=== PATIENT | male | born 1975 | race Caucasian/White ===

== ENCOUNTER 2021-12-16 10:33 | Outpatient (REF) | payer MEDICAID, SELFPAY ==
--- NOTE | ~2021-12-16 | XR_ITS ---
EXAMINATION: XR KNEE, RIGHT CLINICAL INFORMATION: Unilateral primary osteoarthritis right knee. COMPARISON: None TECHNIQUE: Three views of the right knee. FINDINGS: There is loss of medial and patellofemoral compartment joint space with mild periarticular spurring. No loose bodies, bony erosive changes or fracture seen. There is mild suprapatellar joint effusion. XR/XR knee RT 3V IMPRESSION: Degenerative osteoarthritic changes medial and patellar femoral compartment with mild joint effusion. No visible acute fracture or dislocation seen.
== END 2021-12-16 10:34 | disposition home or self-care (01) ==
LOC: HO.XRAY 10:33
PROVIDERS: Visit Provider Nurse Practitioner Family
DX: M17.11 Unilateral primary osteoarthritis, right knee (principal)
CPT/HCPCS: 73562; 99202

== ENCOUNTER 2022-01-18 06:07 | Outpatient (REF) | payer MEDICAID, SELFPAY | END 2022-01-18 06:08 | disposition home or self-care (01) | LOC: HO.RADIR 06:07 | PROVIDERS: Visit Provider Anesthesiology | DX: M17.11 Unilateral primary osteoarthritis, right knee (principal) | CPT/HCPCS: 64447 ==

== ENCOUNTER 2022-03-23 05:50 | Outpatient (REF) | payer MEDICAID, SELFPAY | END 2022-03-23 05:51 | disposition home or self-care (01) | LOC: HO.RADIR 05:50 | PROVIDERS: Visit Provider Internal Medicine | DX: Z13.89 Encounter for screening for other disorder (principal) ==

== ENCOUNTER 2023-08-16 09:54 | Outpatient (REF) | payer MEDICAID, SELFPAY ==
--- NOTE | ~2023-08-16 | XR_ITS ---
EXAMINATION: XR HIP, RIGHT CLINICAL INFORMATION: Right hip pain. COMPARISON: CT dated 10/10/2022. TECHNIQUE: AP view of the pelvis and a frog-leg lateral view of the right hip. FINDINGS: Prosthetic components of the left total hip arthroplasty appear appropriately positioned without periprosthetic fracture or malalignment. No periprosthetic erosion identified. There is mild osteoarthritis in the right hip with mild cephalad joint space narrowing and small marginal osteophytes. SI joints and pubic symphysis appear well preserved. There is degenerative disc disease in the lower lumbar spine along with facet arthropathy. No acute osseous findings. No fractures. Soft tissues are unremarkable. XR/XR hip RT min 2V IMPRESSION: 1. Mild osteoarthritis in the right hip. 2. Appropriate alignment of the left total hip arthroplasty without evidence of complications. 3. Degenerative spondylosis in the lower lumbar spine.
== END 2023-08-16 09:55 | disposition home or self-care (01) ==
LOC: HO.HOSX 09:54
PROVIDERS: Visit Provider Orthopaedic Surgery
DX: M25.551 Pain in right hip (principal); M54.50 Low back pain, unspecified; M79.604 Pain in right leg; M47.816 Spondylosis without myelopathy or radiculopathy, lumbar region; Z96.642 Presence of left artificial hip joint
CPT/HCPCS: 73502; 99202

== ENCOUNTER 2023-08-16 12:50 | Outpatient (AMB) | payer MEDICAID, SELFPAY ==
--- NOTE | 2023-08-16 12:51 | A.OFFVIS_ITS ---
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 The patient describes his low back pain as sharp and severe in nature. States that his back pain does radiate down his right leg. He did undergo left total hip replacement surgery by Dr. Purdy in [place] in 2020. He reports minimal discomfort in his left hip. He has taken Tylenol and anti-inflammatory medicines as well as gabapentin which gave him minimal relief. The patient also reports intermittent weakness in his right leg. He has done physical therapy exercises which aggravated his pain. Allergies No Known Allergies Allergy (Verified 08/16/23 13:11) Medication List - Last Reconciled 08/16/23 by Davi Encinas MD albuterol sulfate 90 mcg/actuation (ProAir HFA) grams inhalation alprazolam 1-2 tablets orally; gabapentin 300 mg PO sertraline 50 mg PO sertraline 100 mg PO BEDTIME [facility] Medical History (Updated 08/16/23 @ 13:37 by Davi Encinas MD) Other intervertebral disc degeneration, lumbar region Insomnia, unspecified Generalized anxiety disorder Nicotine dependence, cigarettes, uncomplicated Sedative, hypnotic or anxiolytic dependence, uncomplicated Surgical History (Updated 08/16/23 @ 13:17 by Najma Nicole CMA) History of ankle surgery (~2012) History of hip surgery (~12/02/20) Social History Patient Tobacco Use Status: Current everyday Tobacco user Cigarette Packs Per Day: 0.5 Substance Use Type: Marijuana Physical Exam Vital Signs: BMI result Body Mass Index 31.2 Const Other: Well-nourished well-developed very friendly male awake alert and oriented x3 in no acute distress Back/Spine/Pelvis Other: Low back examination shows right-sided paraspinal muscle tenderness, pain with range of motion, positive straight leg raise test on the right at 70 degrees, 4/5 strength with testing of his right hip flexors and knee extensors when com pared to 5/5 strength on his left side Extrem Other: Right hip examination shows slightly decreased range of motion when compared to his left hip, mild pain with range of motion, mild tenderness over his bursa Results Reviewed Results Reviewed: X-rays of the patient's right hip show mild to moderate diffuse joint space narrowing, no acute bony abnormalities Assessment & Plan Assessment & Plan (1) Low back pain radiating to right leg: Code(s): M54.50 - Low back pain, unspecified; M79.604 - Pain in right leg (2) Right hip pain: Code(s): M25.551 - Pain in right hip Plan Mr. Capellan presents with progressively worsening low back pain which radiates down his right leg as well as associated right leg weakness possibly due to lumbar stenosis or a disc herniation. Thus, I will send the patient for an MRI of his lumbar spine for further evaluation. I will see him back once the MRI is completed to discuss the findings and treatment options. The patient also has right hip pain most likely due to early arthritis as well as greater trochanteric bursitis. We will hold off on cortisone injection at this time. Feel free to call me at any time should questions regarding his orthopedic management arise. Thank you very much for asking me to see this very friendly gentleman. I spent 22 minutes in reviewing the patient's records and imaging studies, seeing the patient and documenting in the medical record. Orders: Orders XR hip RT min 2V Today M25.551 - Pain in right hip MR lumbar spine wo con Today M54.50 - Low back pain, unspecified, M79.604 - Pain in right leg Coding Level of Care Code New Pt Level 2 (11653) Diagnoses Low back pain radiating to right leg M54.50; M79.604 Right hip pain M25.551
[2023-08-16 13:07] VITALS: BMI 31.2
== END 2023-08-16 13:33 | disposition home or self-care (01) ==
PROVIDERS: PCP Internal Medicine; Visit Provider Orthopaedic Surgery
DX: M54.50 Low back pain, unspecified (principal); M79.604 Pain in right leg; M25.551 Pain in right hip
CPT/HCPCS: 99202

== ENCOUNTER 2023-08-28 14:14 | Outpatient (AMB) | payer MEDICAID, SELFPAY ==
[2023-08-28 14:15] VITALS: BMI 31.2
--- NOTE | 2023-08-28 14:15 | MHC.OFFVIS ---
Intake Vital Signs 08/28/23 14:15 Height 6 ft Weight 230 lb BMI 31.2 Intake Visit Reasons: OV-Lumber Spine MRI review Intake Note: Rosie is a 48 year old male who presents as a new patient with complaints of progressively worsening low back pain. The patient describes his low back pain as sharp and severe in nature. States that his back pain does radiate down his right leg. He did undergo left total hip replacement surgery by Dr. Purdy in [place] in 2020. He reports minimal discomfort in his left hip. He has taken Tylenol and anti-inflammatory medicines as well as gabapentin which gave him minimal relief. The patient also reports intermittent weakness in his right leg. He has done physical therapy exercises which aggravated his pain. Allergies No Known Allergies Allergy (Verified 08/28/23 14:19) [facility] Medical History Other intervertebral disc degeneration, lumbar region Insomnia, unspecified Generalized anxiety disorder Nicotine dependence, cigarettes, uncomplicated Sedative, hypnotic or anxiolytic dependence, uncomplicated Surgical History History of ankle surgery (~2012) History of hip surgery (~12/02/20) Social History Patient Tobacco Use Status: Current everyday Tobacco user Cigarette Packs Per Day: 0.5 Substance Use Type: Marijuana Physical Exam Vital Signs: BMI result Body Mass Index 31.2 Const Other: Well-nourished well-developed very friendly male awake alert and oriented x3 in no acute distress Back/Spine/Pelvis Other: Low back examination shows right-sided paraspinal muscle tenderness, pain with range of motion, positive straight leg raise test on the right at 70 degrees Results Reviewed Results Reviewed: MRI of the patient's lumbar spine shows moderate to severe right neural foraminal narrowing at level L3-L4 as well as L4-L5 Assessment & Plan Assessment & Plan (1) Low back pain radiating to right leg: Code(s): M54.50 - Low back pain, unspecified; M79.604 - Pain in right leg Plan Mr. Capellan presents with progressively worsening low back pain which radiates down his right leg most likely due to lumbar stenosis. Thus, I will refer the patient to the neurosurgery department here at [facility]. He will contact me prior to that time should his symptoms worsen in any way. Feel free to call me at any time should questions regarding his orthopedic management arise. I spent 22 minutes in reviewing the patient's records and imaging studies, seeing the patient and documenting in the medical record. Orders: Referrals Neurosurgery Referral M54.50 - Low back pain, unspecified, M79.604 - Pain in right leg Coding Level of Care Code Est Pt Level 2 (26685) Diagnoses Low back pain radiating to right leg M54.50; M79.604
== END 2023-08-28 14:40 | disposition home or self-care (01) ==
PROVIDERS: PCP Internal Medicine; Visit Provider Orthopaedic Surgery
DX: M54.50 Low back pain, unspecified (principal); M79.604 Pain in right leg
CPT/HCPCS: 99213

== ENCOUNTER → 2023-08-28 14:14 | Outpatient (BNVA) | payer MEDICAID, SELFPAY | PROVIDERS: PCP Internal Medicine; Visit Provider Orthopaedic Surgery | DX: M54.50 Low back pain, unspecified (principal); M79.604 Pain in right leg | CPT/HCPCS: 99212 ==

== ENCOUNTER 2023-09-08 13:53 | Outpatient (REF) | payer MEDICAID, SELFPAY | END 2023-09-08 13:54 | disposition home or self-care (01) | LOC: HO.HOSX 13:53 | PROVIDERS: PCP Internal Medicine; Visit Provider Physician Assistant | DX: M54.16 Radiculopathy, lumbar region (principal) | CPT/HCPCS: 99212 ==

== ENCOUNTER 2023-09-08 13:53 | Outpatient (AMB) | payer MEDICAID, SELFPAY ==
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
== END 2023-09-08 14:44 | disposition home or self-care (01) ==
PROVIDERS: PCP Internal Medicine; Referring Provider Orthopaedic Surgery; Visit Provider Physician Assistant
DX: M54.16 Radiculopathy, lumbar region (principal)
CPT/HCPCS: 99204

== ENCOUNTER 2023-10-16 19:43 | Outpatient (REF) | payer MEDICAID, SELFPAY ==
--- NOTE | ~2023-10-16 | MR_ITS ---
EXAMINATION: MR LUMBAR SPINE WITHOUT CONTRAST CLINICAL INFORMATION: Lumbar radiculopathy. COMPARISON: CT lumbar spine 12/24/2010. TECHNIQUE: MRI of the lumbar spine was obtained using routine sequences without contrast. FINDINGS: There is grade 1 anterolisthesis of L4 on L5 related to advanced facet degenerative changes at this level. Slight grade 1 retrolisthesis of L1 on L2 and L2 on L3. Vertebral body heights are preserved. There are type I degenerative endplate changes at L2-L3 and L3-L4. There is loss of intervertebral disc height and T2 signal intensity at multiple levels related to disc degeneration. The tip of the conus medullaris is located at T12-L1. No mass effect on the conus. Visualized distal cord signal intensity is normal. At L1-L2 there is an asymmetrically bulging disc to the left. Bilateral facet degenerative change. No canal stenosis. No mass effect on the traversing or foraminal nerve roots. At L2-L3 there is a diffusely bulging disc. Bilateral facet degenerative change. No canal stenosis. Subarticular zone narrowing causes abutment of the left traversing L3 nerve roots. No foraminal nerve root compression. At L3-L4 there is an asymmetrically bulging disc to the left. Bilateral facet degenerative change. No canal stenosis. Moderate to severe compression of the foraminal/extraforaminal segment of the left L3 nerve root and mild compression of the right L3 foraminal nerve root. At L4-L5 there is a pseudodisc bulge. Advanced bilateral facet degenerative change. There is a synovial cyst arising from the right L4-L5 facet joint causing asymmetric compression of the right traversing L5 nerve roots. This finding is best depicted on axial image 20 of 28 series 5. Mild mass effect on the left L4 foraminal nerve root. At L5-S1 there is a bulging disc. Bilateral facet degenerative change. No canal stenosis. No mass effect on the traversing or foraminal nerve roots. Limited visualization of the retroperitoneal anatomy reveals no abnormal finding. Psoas and paraspinal muscle groups are symmetric. MR/MR lumbar spine wo con IMPRESSION: There is multilevel degenerative spondylosis of the lumbar spine with grade 1 anterolisthesis of L4 on L5 related to advanced facet degenerative changes at this level. Slight grade 1 retrolisthesis of L1 on L2 and L2 on L3. No canal stenosis. There are varying degrees of mass effect on the traversing and foraminal segments the nerve roots as described above. For instance there is a synovial cyst arising from the right L4-L5 facet joint causing asymmetric compression of the right traversing L5 nerve roots. There is also moderate to severe compression of the foraminal/extraforaminal segment of the left L3 nerve root related to degenerative changes at L3-L4.
== END 2023-10-16 19:44 | disposition home or self-care (01) ==
LOC: HO.MRI 19:43
PROVIDERS: PCP Internal Medicine; Visit Provider Physician Assistant
DX: M54.16 Radiculopathy, lumbar region (principal)
CPT/HCPCS: 72148

== ENCOUNTER 2023-11-01 14:26 | Outpatient (AMB) | payer MEDICAID, SELFPAY ==
--- NOTE | 2023-11-01 14:30 | A.SPINEOV_ITS ---
Intake Visit Reasons: Discuss MRI Results Intake Note: Mr. Capellan is here today to F/u on MRI Safety Consultant Required: No Allergies No Known Allergies Allergy (Verified 08/28/23 14:19) Assessment & Plan Assessment & Plan (1) Lumbar radiculopathy: Code(s): M54.16 - Radiculopathy, lumbar region Category: Medical Plan: Rosie comes in today for a subsequent follow-up visit after having his lumbar MRI completed. To recap he primarily was complaining of right-sided hip/thigh pain with intermittent numbness/tingling. He denied any inciting incident and stated this had been slowly worsening over the course of the last 5 years. Today he repeatedly reports these symptoms, but also states that he has intermittent episodes of numbness without shooting pain in his left lower extremity from the left knee down. Unfortunately, he never went to get his x-ray imaging after our last visit. He was able to get his MRI here at [facility] which shows diffuse spondylosis of the lumbar spine. He is varying degrees of stenosis throughout the lumbar spine, worse at L4-5 where he has moderate left-sided and severe right-sided foraminal stenosis with a synovial cyst effacing the right L5 nerve root at this level. I sent the patient for a set of flexion/extension x-rays during this visit, which showed no significant instability. On examination today the patient continues to have 5/5 strength in his bilateral lower extremities. He has no myelopathic reflexes. After reviewing the patients history, physical, and imaging with Dr. Ferrell he offered the patient a right L4-5 lumbar decompression with synovial cyst removal. I attempted to call him to inform him, but he did not pickle pumper. I left him a voicemail and will follow up with him on Monday. Nicanor Ferrell MD,PhD [facility] Orders: Orders XR lumbar spine 4V min 11/01/23 M54.16 - Radiculopathy, lumbar region Coding Level of Care Code Est Pt Level 3 (66708) Diagnoses Lumbar radiculopathy M54.16
== END 2023-11-01 15:05 | disposition home or self-care (01) ==
PROVIDERS: PCP Internal Medicine; Visit Provider Physician Assistant
DX: M54.16 Radiculopathy, lumbar region (principal)
CPT/HCPCS: 99213

== ENCOUNTER 2023-11-01 14:26 | Outpatient (REF) | payer MEDICAID, SELFPAY ==
--- NOTE | ~2023-11-01 | XR_ITS ---
EXAMINATION: XR LUMBOSACRAL SPINE WITH OBLIQUES CLINICAL INFORMATION: Radiculopathy, lumbar region. COMPARISON: MRI scan of the lumbar spine dated 10/16/2023. TECHNIQUE: AP, lateral and lateral flexion and extension views of the lumbar spine were performed with the patient in the upright position. FINDINGS: There is a convex left lumbar scoliosis. Minimal grade 1 retrolisthesis is seen at all levels in the lumbar spine. There is mild degenerative disc disease with disc space narrowing and vertebral endplate sclerosis and spurring seen throughout the lumbar spine. There is moderate to severe facet arthropathy throughout the lumbar spine with a lower lumbar gradient. Limited range of motion is seen on the lateral flexion and extension views with no significant change in alignment noted. XR/XR lumbar spine 4V min IMPRESSION: * Mild to moderate multilevel degenerative disc disease and moderate to severe facet arthropathy in the lumbar spine. * Minimal grade 1 retrolisthesis at all levels in the lumbar spine, likely related to degenerative disc disease and facet arthropathy. * No significant change in alignment is seen on the lateral flexion and extension views, though evaluation is limited given limited range of motion.
== END 2023-11-01 14:27 | disposition home or self-care (01) ==
LOC: HO.HOSX 14:26
PROVIDERS: PCP Internal Medicine; Visit Provider Physician Assistant
DX: M54.16 Radiculopathy, lumbar region (principal)
CPT/HCPCS: 72110; 99212

== ENCOUNTER 2024-01-03 06:00 | Day surgery (SDC) | payer MEDICAID, SELFPAY ==
[2023-12-20 09:04] VITALS: BMI 31.2
[2024-01-03] VITALS (8 sets, daily range): BP systolic 119–157; BP diastolic 75–93; PULSE 60–73; RESP 16–18; TEMP 36.1–36.4; O2SAT 98–100; BMI 31.4
--- NOTE | ~2024-01-03 | FL_ITS ---
EXAMINATION: XR FLUOROSCOPY WITH IMAGES CLINICAL INFORMATION: L4-L5 lumbar decompression, right. COMPARISON: None available. TECHNIQUE: Fluoroscopy Supervised By: Dr. Jaylen Ferrell. Fluoroscopy Time: 5 seconds. Cumulative Dose: 4.0922 mGy. DAP: 1.6108 Gycm2. Images: 2. FINDINGS: Intraoperative fluoroscopy and spot films were performed during a procedure in the OR. A probe is seen at the L4-L5 interspace as well as at the inferior endplate of L5. Partial visualization of a left total hip prosthesis. Please correlate with Dr. Jaylen Ferrell's report for complete details. FL/FL guidance in OR IMPRESSION: Intraoperative fluoroscopy and spot films were obtained. Please see Dr. Jaylen Ferrell's report for complete details.
[2024-01-03] MEDS: Lactated Ringers 1,000 ML 100 ML IVCONT (06:41)
[2024-01-03] MEDS: methocarbamoL 750 MG TABLET PO (06:51)
--- NOTE | 2024-01-03 07:08 | HO.ANESPROP2 ---
FORM[facility]LY [facility] Active Problems Active Problems: All Active Problems Lumbar radiculopathy (Acute) Low back pain radiating to right leg (Acute) Right hip pain (Acute) Right knee pain (Acute) Unilateral primary osteoarthritis, right knee (Acute) Past Medical History Medical History Acquired planovalgus deformity of left foot Lumbar degenerative disc disease Arthritis Osteoarthritis Depression Nicotine dependence Obesity HTN (hypertension) Anxiety Back pain Loud snoring Asthma Other intervertebral disc degeneration, lumbar region Insomnia, unspecified Generalized anxiety disorder Nicotine dependence, cigarettes, uncomplicated Sedative, hypnotic or anxiolytic dependence, uncomplicated Surgical History Surgical History History of surgical removal of ganglion cyst Hx of tonsillectomy Hx of carpal tunnel repair History of orthopedic surgery History of ankle surgery (~2012) History of hip surgery (~12/02/20) History of Problems with Anesthesia: No Social History Social History Household Members: Spouse Housing: House Are you a primary career services assistant to a significant other at home: No Do you presently have visiting nurse or other home services: No Patient Tobacco Use Status: Former Tobacco user Tobacco use type: Cigarette Cigarette Packs Per Day: 0.5 Cigarettes Per Day: 10 Years Smoked: 30 Smoked in Last 30 Days: Yes Use of substances other than those prescribed or required for medical reasons: Yes Substance Use Type: Marijuana Substance Use Frequency: Daily Have you been hit, kicked, punched, or otherwise hurt by someone within the past year? If so, by whom?: No Are you DNR?: No Advance Directives: No Advance Directives Information Provided: Yes Advance Directives on File: No Healthcare Proxy: No Recently lost weight without trying: No Nutrition Risks: No Nutritional Risk Poor oral hygiene: No Meds Allergies Allergy/AdvReac Type Severity Reaction Status Date / Time red dye Allergy Intermediate Itching, Verified 12/19/23 16:52 blotchy Active Medications: Current Medications Lactated Ringer's (Lr) 1,000 mls @ 100 mls/hr IVCONT .Q10H RONNIE Last Admin: 01/03/24 06:41 Dose: 100 mls/hr Home Medications ?Medication ?Instructions ?Recorded ?Confirmed ?Last Taken ?Type albuterol sulfate 90 mcg/actuation 2 puff inhalation Q4-6H PRN 12/16/21 12/19/23 Unknown History aerosol inhaler (ProAir HFA) Shortness Of Breath Or Wheezing alprazolam 1 mg tablet See Rx Instructions PO .COMPLEX 12/16/21 12/19/23 Unknown History sertraline 100 mg tablet 100 mg PO BID 01/24/22 12/19/23 Unknown History budesonide-formoterol HFA 160 2 puff inhalation BID 12/19/23 12/19/23 Unknown History mcg-4.5 mcg/actuation aerosol inhaler (Symbicort) bupropion HCl 150 mg tablet,12 hr 150 mg PO BID 12/19/23 12/19/23 Unknown History sustained-release pregabalin 75 mg capsule 75 mg PO TID 12/19/23 01/03/24 01/03/24 05:00 History Exam Height,Weight and Vital Signs: Height 6 ft Weight 104.893 kg Last Vital Signs Temp 97.1 F 01/03/24 06:29 Pulse 62 01/03/24 06:29 Resp 18 01/03/24 06:29 BP 119/84 01/03/24 06:29 Pulse Ox 98 01/03/24 06:29 O2 Del Method Room Air 01/03/24 06:29 Airway Mallampati Class: III TM Dist: >3cm Neck ROM: Limited Loose/Missing/Broken Teeth: Yes, Upper and Lower Heart: RRR Lungs: CTA Assessment and Plan Assessment Anesthesia Assessment: Anesthesia Plan Discussed and Chart Reviewed Final Anesthetic Review History of Problems with Anesthesia: No NPO: Yes ASA Class: II Final Preanesthetic Review: Meds/Allgs Chart Reviewed, Consent Obtained/Reviewed and Anes Risks/Benef Reviewed Patient Risk: Low Procedure Risk: Intermediate Anesthetic Plan Anesthetic Plan: GA Disposition: Standard PACU
--- NOTE | 2024-01-03 07:18 | MHC.SHP ---
Pre-Procedural Eval Section A - 24 Hr Update-Section A only Date of Service: 01/03/24 Section B - Complete if H&P > 30 days Chief Complaint: Radiculopathy, lumbar region Allergies: Allergies Allergy/AdvReac Type Severity Reaction Status Date / Time red dye Allergy Intermediate Itching, Verified 12/19/23 16:52 blotchy Review of Systems Sugical H&P ROS: Negative: Constitution, Cardiovascular, Respiratory, Neurological, Psychiatric, Hem-Onc, Allergic/Immunologic, Gastrointestinal, Genitourinary, Musculoskeletal, Integumentary, Endocrine and Eyes/Ears/Nose/Throat Exam Surgical H&P Exam: Not Evaluated: HEENT, Not Evaluated: Heart, Not Evaluated: Lungs, Not Evaluated: Extremities, Not Evaluated: Abdomen, Not Evaluated: Skin and Not Evaluated: Neurological Exam Comment: The patient is A&OX4. Chest rise and fall normal. Well perfused. Overall well appearing, NAD. Plan I have reviewed the history and physical and performed a pertinent physical examination on my patient. No changes have occurred unless specified. The plan remains the same, right sided L4-5 decompression for removal of synovial cyst Time Spent With Patient Time: Total time managing care of this patient today _10___ minutes.
--- NOTE | 2024-01-03 08:33 | W.PM.OPN ---
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 I have explained the nature, purpose and benefits of the operation. I have discussed the risks and benefit of the operation including possible complications or adverse events with patient/family. Alternative(s) were discussed with the patient with their relative benefits and risks as well as the consequences of not accepting the operation were included in obtaining consent. Surgeon: STELLA MARSHALL MD, PHD Procedure Assisted By: JULIA Garcia Description of Procedure This 48-year-old male suffering from a right lumbar radiculopathy due to a extradural benign mass compressing the L5 nerve root. The patient was offered a removal of the mass to decompress the nervous structure. The procedure complications were explained. The patient was consented. The patient was brought to the operating room and endotracheally intubated. The patient was turned in prone position on the Hugh frame. Prep and drape was done followed by timeout. Physician operations administrative assistant provided access. A mid lumbar incision was made followed by release of the paravertebral muscle on the right side to expose the L4-5 lamina and facet joint. An intraoperative x-ray was obtained to confirm the correct level. The microscope was brought in. I took over the procedure. The high-speed drill was used to do a L4-5 laminotomy. The flavum ligament was opened to expose the underlying thecal sac and start of the L5 nerve root. A large cystic mass was identified and dissected from the L5 nerve root. When the mass was completely relieved from the L5 nerve root I removed it in toto. Most likely we were dealing with a synovial cyst. A long the nerve root could be easily passed, a sign of adequate decompression of the nerve root . The microscope was removed. Hemostasis was done. Incision was closed in 2 layers. Steri-Strips were used to approximate incision. An OpSite with Tegaderm was used to cover the incision. All sponge needle counts were correct. Patient was extubated and transported in stable is to recovery room. Anesthesia: General Estimated Blood Loss (ml): Minimal Duration of Surgery: Under 60 Minutes Postoperative Plan: Discharge to home
--- NOTE | 2024-01-03 08:38 | P.DS_ITS ---
DS: Providers Provider Date of Service: 01/03/24 Primary care physician: Jean Tracey MD DS: Summary Time Attestation Discharge Coordination Time (in mins): 15 Quality: Safe Use of Opioids Does Pt have an Active Cancer Diagnosis on the Problem List?: No Quality: Stroke Does the patient have a stroke diagnosis?: No Physical Exam Vital Signs: Vital Signs: Last Vital Signs Temp 97.1 F 01/03/24 06:29 Pulse 62 01/03/24 06:29 Resp 18 01/03/24 06:29 BP 119/84 01/03/24 06:29 Pulse Ox 98 01/03/24 06:29 O2 Del Method Room Air 01/03/24 06:29 BMI result Body Mass Index 31.4 Discharge Plan Discharge Patient Disposition: Home, Self-Care Referrals: Jean Tracey MD [Primary Care Provider] - 1 Week Discharge Medications: New oxycodone 5 mg tablet 5 mg PO Q6H PRN (Reason: severe pain (scale score 7-10)) Qty: 30 0RF Rx Instructions: Partial Fill upon patient request. Continued pregabalin 75 mg capsule 75 mg PO TID budesonide-formoterol [Symbicort] 160-4.5 mcg/actuation HFA aerosol inhaler 2 puff INHALATION BID bupropion HCl 150 mg tablet sustained-release 12 hr 150 mg PO BID alprazolam 1 mg tablet See Rx Instructions PO .COMPLEX Rx Instructions: 1-2 tablets orally; albuterol sulfate [ProAir HFA] 90 mcg/actuation HFA aerosol inhaler 2 puff inhalation Q4-6H PRN (Reason: Shortness Of Breath Or Wheezing) sertraline 100 mg tablet 100 mg PO BID Discharge Orders: Discharge Order (Routine); Ordered 01/03/24 Ordered By: Nicanor Riley Diet: Advance to usual diet Activity on Discharge: As tolerated Activity Restrictions/Additional Instructions: After your spinal surgery we ask you to observe the following restrictions/ guidelines: Activity: It is normal to feel some discomfort as you increase your activity, but that will improve with time. We ask you avoid heavy lifting or acitivities that cause pain. As a general rule, 8lbs is a safe limit for lifting right after surgery. Walk as much as you feel comfortable but not to exhaustion. You will feel extra tired the first few days after surgery. Stay well hydrated. It is OK to walk up and down stairs You may return to driving when you are off narcotics (such as vicodin, oxycodone, dilaudid, etc), and you are back to normal functional capacity. If you have any concerns please check with office before driving. Return to work is specific to each patient and each surgery, so please speak with your doctor/PA at first follow up. Please bring paperwork such as FMLA at that time if you need it filled out. Medications: We will give you a short supply of narcotics after surgery (usually one weeks worth). If you need more please call the office but do not use more than prescribed. You will need to give our office 48 hours notice if you need narcotics refilled and we do not fill narcotics on weekends or evenings. If you are on a narcotic, it is a good idea to take a stool softener such as colace or senna to avoid constipation If you take blood thinner such as aspirin, Plavix, Coumadin, Effient, Eliquis etc for conditions such as Afib, DVT, Pulmonary embolus, coronary disease, stents etc please speak with your surgeon about specific details as to when you can resume these medications. You can resume NSAIDs on post op day 1 (eg: Motrin, Naproxen, etc). Follow up: Please call the office, , after surgery to arrange a 3 week follow up for wound check. Wound Care: You may remove your dressing on the first day after surgery. ?You may ?leave open to air. Please do not remove the steri strips underneath. they will fall off on their own in one week. IT IS NORMAL FOR THE WOUND TO OOZE OR BE BLOODY FOR A FEW DAYS AFTER SURGERY. ?IF THIS HAPPENS JUST PLACE NEW DRESSING OVER IT TO AVOID STAINING CLOTHES. You may shower on post op day # 1 We ask that you do not let the water soak the wound. If it does get wet, just towel dry lightly. Please do not scrub your incision or place any type of chemical/ointment on the wound. No tub baths, pools or jacuzzis for one month. If you have any leaking or redness from your wound, or fevers, please call the office. Print Language: Lithuanian
[2024-01-03] MEDS: fentaNYL citrate/PF 100 MCG/2 ML VIAL 25 MCG IVPUSH (09:01)
[2024-01-03] MEDS: oxyCODONE HCl Immed Release 5 MG TABLET PO (09:24)
== END 2024-01-03 10:00 | disposition home or self-care (01) ==
PROVIDERS: PCP Internal Medicine; Visit Provider Neurological Surgery
PROC: (CPT 63267; principal; 2024-01-03 07:30)
DX: M54.16 Radiculopathy, lumbar region (principal); M71.38 Other bursal cyst, other site; G89.4 Chronic pain syndrome; I10 Essential (primary) hypertension; F41.1 Generalized anxiety disorder; F32.2 Major depressive disorder, single episode, severe without psychotic features; F13.20 Sedative, hypnotic or anxiolytic dependence, uncomplicated; G47.00 Insomnia, unspecified; E66.9 Obesity, unspecified; Z68.33 Body mass index [BMI] 33.0-33.9, adult; Z79.51 Long term (current) use of inhaled steroids; Z79.899 Other long term (current) drug therapy; Z98.890 Other specified postprocedural states; Z87.891 Personal history of nicotine dependence
CPT/HCPCS: 63267; J0131; J0690; J1100; J1885; J2250; J2405; J2704; J3010

== ENCOUNTER → 2024-01-03 06:00 | Outpatient (BNV) | payer MEDICAID, SELFPAY | PROVIDERS: PCP Internal Medicine; Visit Provider Neurological Surgery | DX: M54.16 Radiculopathy, lumbar region (principal) | CPT/HCPCS: 63267; 99499 ==

== ENCOUNTER 2024-01-26 11:46 | Outpatient (AMB) | payer MEDICAID, SELFPAY ==
--- NOTE | 2024-01-26 11:52 | HO.SPINEOV ---
Intake Visit Reasons: 1st post op Intake Note: Mr. Capellan is here today for his 1st post-op visit. Gamb Cutter Required: No Allergies red dye Allergy (Intermediate, Verified 12/19/23 16:52) Itching, blotchy Assessment & Plan Assessment & Plan (1) Synovial cyst of lumbar facet joint: Code(s): M71.38 - Other bursal cyst, other site Category: Medical Plan Dear colleague, On 01/26/2024 I saw for 1st postoperative visit Rosie Capellan. He is status post removal of an L4-5 synovial cyst to treat a right lumbar radiculopathy 3 weeks ago. He is doing well. He returned to work. He is avoiding heavy lifting. He does notice that after activities he has a right-sided back pain when he sits down. Severe radiating pain down his leg only comes after walking a certain distance. I am optimistic that the symptoms referred her improve. I would like to follow up with him in 6 weeks. I wrote him a new and final prescription oxycodone 5 mg b.i.d. Kwadwo Ferrell MD, PhD Spine Fellowship Trained Neurosurgeon Director, [facility] Medications: New oxycodone Partial Fill upon patient request. 5 mg PO BID PRN 30 tabs 0RF pain Coding Level of Care Code Global (52958) Diagnoses Synovial cyst of lumbar facet joint M71.38
== END 2024-01-26 12:01 | disposition home or self-care (01) ==
PROVIDERS: PCP Internal Medicine; Visit Provider Neurological Surgery
DX: M71.38 Other bursal cyst, other site (principal)
CPT/HCPCS: 99024

== ENCOUNTER → 2024-01-26 11:46 | Outpatient (BNVA) | payer MEDICAID, SELFPAY | PROVIDERS: PCP Internal Medicine; Visit Provider Neurological Surgery | DX: M71.38 Other bursal cyst, other site (principal) | CPT/HCPCS: 99212 ==

== ENCOUNTER 2024-03-07 11:08 | Outpatient (AMB) | payer MEDICAID, SELFPAY ==
--- NOTE | 2024-03-07 11:09 | HO.SPINEOV ---
Intake Visit Reasons: 2nd post op Intake Note: Mr. Capellan is here today for his 2nd post-op visit. Claim Manager Required: No Allergies red dye Allergy (Intermediate, Verified 03/07/24 11:10) Itching, blotchy Assessment & Plan Assessment & Plan (1) Chronic SI joint pain: Code(s): M53.3 - Sacrococcygeal disorders, not elsewhere classified; G89.29 - Other chronic pain Category: Medical Plan Mr Capellan is here for his final postoperative visit. He had a right L4-5 hemilaminotomy and resection of synovial cyst done almost 2 months ago. The lightening bolt type pain that he had going down his leg is completely gone so we very happy about that. However, he has been dealing with a right-sided back pain now for over a year. It happened after a fall. The pain will be right over is sacroiliac area and radiate into his groin. He feels as though there is a clicking sound in there. He did have an orthopedic workup and hip x-ray and all that was negative with no significant signs of arthritis or degeneration. He does have a slight levoscoliosis on his standing lumbar x-rays. He has been frustrated with it because the pain that we resolve for him with our surgery made him more mobile, but this pain is continuing to limit his ability to be active. I examined him today, and he does have positive finger Adina test, positive JESSICA sign on the right side I am able to reproduce a lot of the pain with that testing. I suspect he may have SI joint instability after the fall that he took about a year ago. I would like to have him see Dr. Lemus at [facility] and see if he can evaluate and do possibly some injections to help him out. Other than that he needs no specific follow-up on our end. If it gets to the point where the SI joint becomes bad enough to need surgery, I told him to come back and we could consider fusion if Dr. Lemus thinks that this is indeed the diagnosis. Total amount of time spent in this visit was 20 minutes in discussion of symptoms, lumbar imaging results and subsequent plan of care Mark Ferrell MD,PhD [facility] Orders: Referrals Pain Management Referral G89.29 - Other chronic pain, M53.3 - Sacrococcygeal disorders, not elsewhere classified Coding Level of Care Code Est Pt Level 3 (11835) Diagnoses Chronic SI joint pain M53.3; G89.29
== END 2024-03-07 11:46 | disposition home or self-care (01) ==
PROVIDERS: PCP Internal Medicine; Visit Provider Physician Assistant
DX: M53.3 Sacrococcygeal disorders, not elsewhere classified (principal); G89.29 Other chronic pain
CPT/HCPCS: 99024

== ENCOUNTER → 2024-03-07 11:08 | Outpatient (BNVA) | payer MEDICAID, SELFPAY | PROVIDERS: PCP Internal Medicine; Visit Provider Physician Assistant | DX: M53.3 Sacrococcygeal disorders, not elsewhere classified (principal); G89.29 Other chronic pain | CPT/HCPCS: 99212 ==

== ENCOUNTER 2024-07-02 13:59 | Outpatient (AMB) | payer MEDICAID, SELFPAY ==
--- NOTE | 2024-07-02 14:04 | MHC.OFFVIS ---
Vital Signs 07/02/24 14:08 Height 6 ft Weight 259 lb 2 oz BMI 35.1 BP 154/83 H Blood Pressure Location Lt brachial Position Sitting Pulse 83 Pulse Source Pulse Oximeter Pulse Oximetry (%) 96 Oxygen Delivery Method Room Air Intake Visit Reasons: Sacrococcygeal disorders Intake Note: Pain today 12/10 Concrete Mason Required: No Accompanied by: Spouse Allergies red dye Allergy (Intermediate, Verified 07/02/24 14:09) Itching, blotchy HPI Comments Details: Patient presents today for right sided low back pain and discussion for right SIJ diagnostic injection per Dr. Ferrell's request. Patient was last seen in our office 2 years ago for right knee pain. He underwent right L4-L5 hemilaminotomy and resection of synovial cyst in January 2024 which resolved his back and right leg pain but not right hip and right groin pain. He reports right hip pain that extends into right buttock and upper sacral area and into his groin. Right groin pain is severe with internal and external rotations, abduction and flexion, and with weight bearing, walking, changing his positions or getting out from car or bed. 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 Patient reports he was seen by Dr. Lemus for potential SI joint injection but told patient to see our office. Patient also was seen by Dr. Encinas in August 2023 for hip pain with xray showing mild hip OA. Patient is concerned for popping and clicking sounds with hip ROM or walking or from getting up positions. He is interested to proceed with right SIJ injection and undergo right hip MRI. Right groin and SIJ pain has been resistant to conservative treatments, including home exercise program, NSAIDs, pregabalin and Percocet. Denies any fever or chills, abdominal pain, weakness, burning, tingling, numbness, bladder or bowel dysfunction or saddle anesthesia. Patient has quit smoking today and has reported decreased cravings since starting bupropion. [facility] 03/07/24 Mark DUMONT: Mr Capellan is here for his final postoperative visit. He had a right L4-5 hemilaminotomy and resection of synovial cyst done almost 2 months ago. The lightening bolt type pain that he had going down his leg is completely gone so we very happy about that. However, he has been dealing with a right-sided back pain now for over a year. It happened after a fall. The pain will be right over is sacroiliac area and radiate into his groin. He feels as though there is a clicking sound in there. He did have an orthopedic workup and hip x-ray and all that was negative with no significant signs of arthritis or degeneration. He does have a slight levoscoliosis on his standing lumbar x-rays. He has been frustrated with it because the pain that we resolve for him with our surgery made him more mobile, but this pain is continuing to limit his ability to be active. I examined him today, and he does have positive finger Adina test, positive JESSICA sign on the right side I am able to reproduce a lot of the pain with that testing. I suspect he may have SI joint instability after the fall that he took about a year ago. I would like to have him see Dr. Lemus at [facility] and see if he can evaluate and do possibly some injections to help him out. Other than that he needs no specific follow-up on our end. If it gets to the point where the SI joint becomes bad enough to need surgery, I told him to come back and we could consider fusion if Dr. Lemus thinks that this is indeed the diagnosis. PRIOR 01/24/22: Patient presents today via telehealth encounter to discuss response to right diagnostic femoral nerve block on 01/18/[address] Love. Patient reports no pain relief in his medial and anterior aspects of his right knee. Patient reports nerve block numbness in his above right ankle, calf, and just below right knee areas. This is unusual distribution of nerve block coverage with right diagnostic femoral nerve block which covered lateral, anterior and medial positions of the femoral nerve per procedure notes. As stated before, patient underwent growth plate scraping procedure to stop right leg growth in 1988 as it was growing longer than his left leg. He has been taking ibuprofen or Aleve, and has stopped taking meloxicam due to its ineffectiveness. Patient is willing to undergo a repeat procedure in order to establish reproducible response to the treatment. [facility] Medical History (Updated 07/02/24 @ 14:42 by FLACO White) Acquired planovalgus deformity of left foot Lumbar degenerative disc disease Arthritis Osteoarthritis Depression Nicotine dependence Obesity HTN (hypertension) Anxiety Back pain Loud snoring Asthma Other intervertebral disc degeneration, lumbar region Insomnia, unspecified Generalized anxiety disorder Nicotine dependence, cigarettes, uncomplicated Sedative, hypnotic or anxiolytic dependence, uncomplicated Surgical History (Updated 07/02/24 @ 14:52 by FLACO White) History of lumbar laminectomy History of surgical removal of ganglion cyst Hx of tonsillectomy Hx of carpal tunnel repair History of orthopedic surgery History of ankle surgery (~2012) History of hip surgery (~12/02/20) Social History Household Members: Spouse Housing: House Are you a primary skin care technician to a significant other at home: No Do you presently have visiting nurse or other home services: No Comment: counts correct Patient Tobacco Use Status: Former Tobacco user Tobacco use type: Cigarette Cigarette Packs Per Day: 0.5 Cigarettes Per Day: 10 Years Smoked: 30 Substance Use Type: Marijuana Review of Systems Const All systems reviewed & are unremarkable except as noted in HPI and below Physical Exam Vital Signs: Last Vital Signs Pulse 83 07/02/24 14:08 BP 154/83 H 07/02/24 14:08 Pulse Ox 96 07/02/24 14:08 Oxygen Delivery Method Room Air 07/02/24 14:08 BMI result Body Mass Index 35.1 General: Appears afebrile. Alert and oriented. Mood and affect appropriate. Follows and participates in conversation appropriately. Respiratory effort is unlabored. No cough. Able to transition from sit to stand unassisted. Ambulates with bilaterally normal heel strike and toe off. Back/Spine/Pelvis Other: Lumbar flexion and extension is intact and does not reproduce pain. Mildly antalgic gait with mild limping. Demonstrates 5/5 left and 4/5 right due to pain strength of quadriceps bilaterally as well as flexion/dorsiflexion of bilateral feet against resistance. 2+ pedal pulses bilaterally. Straight leg rise with dorsiflexion negative bilaterally. +1 patellar and achilles reflexes bilaterally. Facet loading test positive bilaterally. Adina sign positive on the right, limited Mesfin?s reproduces severe right groin pain and moderate right lateral hip and back pain, Pelvic compression and Stinchfield tests are positive on the right. +FADIR. Moderate-severe groin pain with I/E hip rotations on the right. Valsalva maneuver negative. Cervical Spine: cervical ROM normal and No Cervical spine tenderness Thoracic/Lumbar Spine: thoracic and lumbar spine normal to inspection, Thoracic/lumbar spine scar(s), Lasegue's sign negative, straight leg raise negative bilaterally, No thoracic spinal tenderness and No lumbar spinal tenderness Pelvis: buttock tenderness on the right and no sciatic notch tenderness Sacroiliac joints: on the right tender to palpation and on the left nontender Extrem General: Yes capillary refill normal, Yes no clubbing, cyanosis or edema and Yes no calf tenderness Results Reviewed Results Reviewed: XR LUMBOSACRAL SPINE WITH OBLIQUES 11/01/23 CLINICAL INFORMATION: Radiculopathy, lumbar region. COMPARISON: MRI scan of the lumbar spine dated 10/16/2023. TECHNIQUE: AP, lateral and lateral flexion and extension views of the lumbar spine were performed with the patient in the upright position. FINDINGS: There is a convex left lumbar scoliosis. Minimal grade 1 retrolisthesis is seen at all levels in the lumbar spine. There is mild degenerative disc disease with disc space narrowing and vertebral endplate sclerosis and spurring seen throughout the lumbar spine. There is moderate to severe facet arthropathy throughout the lumbar spine with a lower lumbar gradient. Limited range of motion is seen on the lateral flexion and extension views with no significant change in alignment noted. IMPRESSION: * Mild to moderate multilevel degenerative disc disease and moderate to severe facet arthropathy in the lumbar spine. * Minimal grade 1 retrolisthesis at all levels in the lumbar spine, likely related to degenerative disc disease and facet arthropathy. * No significant change in alignment is seen on the lateral flexion and extension views, though evaluation is limited given limited range of motion. MR LUMBAR SPINE WITHOUT CONTRAST 10/16/23 CLINICAL INFORMATION: Lumbar radiculopathy. COMPARISON: CT lumbar spine 12/24/2010. TECHNIQUE: MRI of the lumbar spine was obtained using routine sequences without contrast. FINDINGS: There is grade 1 anterolisthesis of L4 on L5 related to advanced facet degenerative changes at this level. Slight grade 1 retrolisthesis of L1 on L2 and L2 on L3. Vertebral body heights are preserved. There are type I degenerative endplate changes at L2-L3 and L3-L4. There is loss of intervertebral disc height and T2 signal intensity at multiple levels related to disc degeneration. The tip of the conus medullaris is located at T12-L1. No mass effect on the conus. Visualized distal cord signal intensity is normal. At L1-L2 there is an asymmetrically bulging disc to the left. Bilateral facet degenerative change. No canal stenosis. No mass effect on the traversing or foraminal nerve roots. At L2-L3 there is a diffusely bulging disc. Bilateral facet degenerative change. No canal stenosis. Subarticular zone narrowing causes abutment of the left traversing L3 nerve roots. No foraminal nerve root compression. At L3-L4 there is an asymmetrically bulging disc to the left. Bilateral facet degenerative change. No canal stenosis. Moderate to severe compression of the foraminal/extraforaminal segment of the left L3 nerve root and mild compression of the right L3 foraminal nerve root. At L4-L5 there is a pseudodisc bulge. Advanced bilateral facet degenerative change. There is a synovial cyst arising from the right L4-L5 facet joint causing asymmetric compression of the right traversing L5 nerve roots. This finding is best depicted on axial image 20 of 28 series 5. Mild mass effect on the left L4 foraminal nerve root. At L5-S1 there is a bulging disc. Bilateral facet degenerative change. No canal stenosis. No mass effect on the traversing or foraminal nerve roots. Limited visualization of the retroperitoneal anatomy reveals no abnormal finding. Psoas and paraspinal muscle groups are symmetric. IMPRESSION: There is multilevel degenerative spondylosis of the lumbar spine with grade 1 anterolisthesis of L4 on L5 related to advanced facet degenerative changes at this level. Slight grade 1 retrolisthesis of L1 on L2 and L2 on L3. No canal stenosis. There are varying degrees of mass effect on the traversing and foraminal segments the nerve roots as described above. For instance there is a synovial cyst arising from the right L4-L5 facet joint causing asymmetric compression of the right traversing L5 nerve roots. There is also moderate to severe compression of the foraminal/extraforaminal segment of the left L3 nerve root related to degenerative changes at L3-L4. XR hip RT min 2V 08/16/23 IMPRESSION: 1. Mild osteoarthritis in the right hip. 2. Appropriate alignment of the left total hip arthroplasty without evidence of complications. 3. Degenerative spondylosis in the lower lumbar spine. Assessment & Plan Assessment & Plan (1) Right hip pain: Code(s): M25.551 - Pain in right hip Category: Medical (2) Chronic SI joint pain: Code(s): M53.3 - Sacrococcygeal disorders, not elsewhere classified; G89.29 - Other chronic pain Category: Medical (3) Osteoarthritis of right hip: Code(s): M16.11 - Unilateral primary osteoarthritis, right hip Category: Medical (4) History of lumbar laminectomy: Code(s): Z98.890 - Other specified postprocedural states Category: Surgical Plan Schedule Diagnostic Right Sacroiliac Joint Injection with local and fluoroscopy. Patient will follow up with us or Dr. Ferrell for follow up. Expectations, risks and benefits were reviewed. Patient is aware he will be contacted to schedule this procedure. Right hip MRI to further evaluate right hip and groin pain that has been debilitating and resistant to conservative treatments. All questions were answered and the patient is in agreement of plan. Follow-up after injection/MRI results and sooner as needed. Orders: Orders MR hip RT wo con Today G89.29 - Other chronic pain, M16.11 - Unilateral primary osteoarthritis, right hip, M25.551 - Pain in right hip, M53.3 - Sacrococcygeal disorders, not elsewhere classified Coding Level of Care Code Est Pt Level 4 (74634) Complex EM visit Add On G2211 Diagnoses Right hip pain M25.551 Chronic SI joint pain M53.3; G89.29 Osteoarthritis of right hip M16.11 History of lumbar laminectomy Z98.890
[2024-07-02 14:08] VITALS: BP 154/83; PULSE 83; O2SAT 96; BMI 35.1
== END 2024-07-02 14:29 | disposition home or self-care (01) ==
PROVIDERS: PCP Internal Medicine; Visit Provider Nurse Practitioner Family
DX: M25.551 Pain in right hip (principal); M53.3 Sacrococcygeal disorders, not elsewhere classified; G89.29 Other chronic pain; M16.11 Unilateral primary osteoarthritis, right hip; Z98.890 Other specified postprocedural states
CPT/HCPCS: 99214

== ENCOUNTER → 2024-07-02 13:59 | Outpatient (BNVA) | payer MEDICAID, SELFPAY | PROVIDERS: PCP Internal Medicine; Visit Provider Nurse Practitioner Family | DX: M25.551 Pain in right hip (principal); M53.3 Sacrococcygeal disorders, not elsewhere classified; M16.11 Unilateral primary osteoarthritis, right hip; G89.29 Other chronic pain; Z98.890 Other specified postprocedural states | CPT/HCPCS: 99212 ==

== ENCOUNTER 2024-07-25 06:18 | Outpatient (REF) | payer MEDICAID, SELFPAY ==
--- NOTE | ~2024-07-25 | FL_ITS ---
EXAMINATION: FL GUIDANCE ONLY HISTORY: M53.3 - Sacrococcygeal disorders, not elsewhere classified COMPARISON: None available. TECHNIQUE: Fluoroscopy time: 0.1 minutes. Cumulative Dose: 2.80 mGy. DAP: 0.0242 uGy-m2 (microgray-meter squared). Images: 3. FINDINGS: Images demonstrate a needle in the region of the right sacroiliac joint. FL/FL guidance in treatment room IMPRESSION: Fluoroscopy during procedure. Please see procedure report for additional information. Electronically signed by: Rufus Torres MD 07/29/2024 11:42 AM JOSEFINA
== END 2024-07-25 06:19 | disposition home or self-care (01) ==
LOC: CF 06:18
PROVIDERS: Visit Provider Internal Medicine
DX: M53.3 Sacrococcygeal disorders, not elsewhere classified (principal); G89.29 Other chronic pain
CPT/HCPCS: 27096; J2003; J2795

== ENCOUNTER 2024-07-25 10:08 | Outpatient (AMB) | payer MEDICAID, SELFPAY ==
[2024-07-25 10:19] VITALS: BP 104/69; PULSE 77; O2SAT 96; BMI 35.1
--- NOTE | 2024-07-25 10:19 | A.OFFVIS_ITS ---
Vital Signs 07/25/24 10:19 Height 6 ft Weight 259 lb BMI 35.1 BP 104/69 Blood Pressure Location Lt brachial Position Sitting Pulse 77 Pulse Source Pulse Oximeter Pulse Oximetry (%) 96 Oxygen Delivery Method Room Air Intake Visit Reasons: Right Dx SIJ inj Collections Technician Required: No Allergies red dye Allergy (Intermediate, Verified 07/25/24 10:19) Itching, blotchy Medication List - Last Reconciled 07/25/24 by Sandie Parham, [employer]UTTING [employer]ING SUPERVISOR albuterol sulfate 90 mcg/actuation (ProAir HFA) 2 puffs inhalation Q4-6H PRN alprazolam 1-2 tablets orally; amlodipine 5 mg PO DAILY budesonide-formoterol 160-4.5 mcg/actuation (Symbicort) 2 puffs inhalation BID bupropion HCl SR 150 mg PO BID oxycodone-acetaminophen 5-325 mg 1 tab PO Q4-6H PRN pregabalin 150 mg PO TID quetiapine 25 - 75 mg PO BEDTIME sertraline 100 mg PO BID HPI HPI Right Dx SIJ inj: Details: Patient presents for scheduled procedure. Denies any recent cough, cold, infection, fever or other significant changes in medical history since last office visit. [facility] Medical History (Updated 07/02/24 @ 14:42 by FLACO White) Acquired planovalgus deformity of left foot Lumbar degenerative disc disease Arthritis Osteoarthritis Depression Nicotine dependence Obesity HTN (hypertension) Anxiety Back pain Loud snoring Asthma Other intervertebral disc degeneration, lumbar region Insomnia, unspecified Generalized anxiety disorder Nicotine dependence, cigarettes, uncomplicated Sedative, hypnotic or anxiolytic dependence, uncomplicated Surgical History (Updated 07/02/24 @ 14:52 by FLACO White) History of lumbar laminectomy History of surgical removal of ganglion cyst Hx of tonsillectomy Hx of carpal tunnel repair History of orthopedic surgery History of ankle surgery (~2012) History of hip surgery (~12/02/20) Social History Household Members: Spouse Housing: House Are you a primary residential caregiver to a significant other at home: No Do you presently have visiting nurse or other home services: No Comment: counts correct Patient Tobacco Use Status: Former Tobacco user Tobacco use type: Cigarette Cigarette Packs Per Day: 0.5 Cigarettes Per Day: 10 Years Smoked: 30 Substance Use Type: Marijuana Physical Exam Vital Signs: Last Vital Signs Pulse 77 07/25/24 10:19 BP 104/69 07/25/24 10:19 Pulse Ox 96 07/25/24 10:19 Oxygen Delivery Method Room Air 07/25/24 10:19 BMI result Body Mass Index 35.1 Office Procedures AMB Joint Injection/Aspiration Joint Injection/Aspiration Details: Sacroiliac Joint Injection, Right The procedure, its benefits, and its risks were explained and written informed consent was obtained from the patient. Immediately prior to starting the procedure, a time-out safety check was conducted. The patient's identification, procedure name, procedure site, and procedure laterality were confirmed with the patient. ? Patient was placed prone on the fluoroscopy table and the lumbosacral area was prepped using ChloraPrep and draped with sterile drapein standard fashion. The C-arm was rotated in a contralateral oblique fashion until the medial border of the iliac crest no longer foreshadowed the posterior sacroiliac joint line. The skin and subcutaneous tissue was anesthetized using 1 mL of 0.75% plain lidocaine with 1.5-inch 25-gauge needle in the middle region of the joint line.? A 3.5-inch 22-gauge spinal needle with small bend on the tip was slowly advanced towards the joint line, coaxial to the x-ray beam. Once bony content was obtained, the needle was easily slid into the intra-articular space.? Intra- articular needle position was confirmed using lateral fluoroscopy.? A total volume of 2.5mL of solution containing 0.5% of ropivacaine was injected intra- articularly. The stylet was reinserted and needle was removed. The patient tolerated the procedure well. Patient denied any lower extremity weakness or numbness. Patient was observed for 30 min and was discharged after fulfilling the standard discharge criteria. Coding 64550 - Sacroiliac Procedure code (CPT) selection complete Assessment & Plan Assessment & Plan (1) Chronic SI joint pain: Code(s): M53.3 - Sacrococcygeal disorders, not elsewhere classified; G89.29 - Other chronic pain Category: Medical Plan Patient is status post diagnostic right SIJ pain. Patient tolerated procedure well and was discharged home in stable condition with discharge instructions. All questions were answered. We will follow-up via telephone or in clinic to assess response to therapy. A follow-up appointment was made during today's visit. Orders: Orders FL guidance in treatment room Today G89.29 - Other chronic pain, M53.3 - Sacrococcygeal disorders, not elsewhere classified Coding Level of Care Code Procedure Only Diagnoses Chronic SI joint pain M53.3; G89.29 CPT Codes Coding - Joint 9: 64075 - Sacroiliac ([id number])
== END 2024-07-25 10:45 | disposition home or self-care (01) ==
LOC: HO.PMCPRC 10:08
PROVIDERS: PCP Internal Medicine; Visit Provider Internal Medicine
DX: M53.3 Sacrococcygeal disorders, not elsewhere classified (principal)
CPT/HCPCS: 27096

== ENCOUNTER 2024-08-01 08:51 | Outpatient (AMB) | payer MEDICAID, SELFPAY ==
--- NOTE | 2024-08-01 08:55 | A.OFFVIS_ITS ---
Vital Signs 08/01/24 08:57 Height 6 ft Weight 261 lb BMI 35.4 BP 118/62 Blood Pressure Location Lt brachial Position Sitting Respiration 16 Pulse 70 Pulse Source Pulse Oximeter Pulse Oximetry (%) 96 Oxygen Delivery Method Room Air Intake Visit Reasons: s/p right Dx SIJ inj Allergies red dye Allergy (Intermediate, Verified 08/01/24 08:58) Itching, blotchy Medication List - Last Reconciled 08/01/24 by Sandra Duffy LPN albuterol sulfate 90 mcg/actuation (ProAir HFA) 2 puffs inhalation Q4-6H PRN alprazolam 1-2 tablets orally; amlodipine 5 mg PO DAILY budesonide-formoterol 160-4.5 mcg/actuation (Symbicort) 2 puffs inhalation BID bupropion HCl SR 150 mg PO BID oxycodone-acetaminophen 5-325 mg 1 tab PO Q4-6H PRN pregabalin 150 mg PO TID quetiapine 25 - 75 mg PO BEDTIME sertraline 100 mg PO BID valsartan 160 mg PO DAILY HPI Comments Details: Patient presents today to assess response to Right Diagnostic SIJ injection on 07/25/[address] Short. 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 Patient does reports about 50% pain relief in right hip for a day after injection. He continues to endorse popping and clicking sounds with hip ROM or walking. He has pending right hip MRI this Monday at [facility]. Patient has been managing his right hip and groin pain with Oxycodone prescribed by his PCP which he only able to take once a day and provides him minimal to moderate relief for 4 hours. Denies any recent cough, cold, infection, fever or other significant changes in medical history since last office visit. Past Procedures: 07/25/24: Right Diagnostic SIJ injection-100% pain relief for 24 hours right buttock and right lower back, 50% right hip relief 01/03/24: Right L4-L5 hemilaminotomy and resection of synovial cyst~ Dr. Ferrell PRIOR: Patient presents today for right sided low back pain and discussion for right SIJ diagnostic injection per Dr. Ferrell's request. Patient was last seen in our office 2 years ago for right knee pain. He underwent right L4-L5 hemilaminotomy and resection of synovial cyst in January 2024 which resolved his back and right leg pain but not right hip and right groin pain. He reports right hip pain that extends into right buttock and upper sacral area and into his groin. Right groin pain is severe with internal and external rotations, abduction and flexion, and with weight bearing, walking, changing his positions or getting out from car or bed. 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 Patient reports he was seen by Dr. Lemus for potential SI joint injection but told patient to see our office. Patient also was seen by Dr. Encinas in August 2023 for hip pain with xray showing mild hip OA. Patient is concerned for popping and clicking sounds with hip ROM or walking or from getting up positions. He is interested to proceed with right SIJ injection and undergo right hip MRI. Right groin and SIJ pain has been resistant to conservative treatments, including home exercise program, NSAIDs, pregabalin and Percocet. Denies any fever or chills, abdominal pain, weakness, burning, tingling, numbness, bladder or bowel dysfunction or saddle anesthesia. Patient has quit smoking today and has reported decreased cravings since starting bupropion. [facility] 03/07/24 Mark DUMONT: Mr Capellan is here for his final postoperative visit. He had a right L4-5 hemilaminotomy and resection of synovial cyst done almost 2 months ago. The lightening bolt type pain that he had going down his leg is completely gone so we very happy about that. However, he has been dealing with a right-sided back pain now for over a year. It happened after a fall. The pain will be right over is sacroiliac area and radiate into his groin. He feels as though there is a clicking sound in there. He did have an orthopedic workup and hip x-ray and all that was negative with no significant signs of arthritis or degeneration. He does have a slight levoscoliosis on his standing lumbar x-rays. He has been frustrated with it because the pain that we resolve for him with our surgery made him more mobile, but this pain is continuing to limit his ability to be active. I examined him today, and he does have positive finger Adina test, positive JESSICA sign on the right side I am able to reproduce a lot of the pain with that testing. I suspect he may have SI joint instability after the fall that he took about a year ago. I would like to have him see Dr. Lemus at [facility] and see if he can evaluate and do possibly some injections to help him out. Other than that he needs no specific follow-up on our end. If it gets to the point where the SI joint becomes bad enough to need surgery, I told him to come back and we could consider fusion if Dr. Lemus thinks that this is indeed the diagnosis. PRIOR 01/24/22: Patient presents today via telehealth encounter to discuss response to right diagnostic femoral nerve block on 01/18/[address] Love. Patient reports no pain relief in his medial and anterior aspects of his right knee. Patient reports nerve block numbness in his above right ankle, calf, and just below right knee areas. This is unusual distribution of nerve block coverage with right diagnostic femoral nerve block which covered lateral, anterior and medial positions of the femoral nerve per procedure notes. As stated before, patient underwent growth plate scraping procedure to stop right leg growth in 1988 as it was growing longer than his left leg. He has been taking ibuprofen or Aleve, and has stopped taking meloxicam due to its ineffectiveness. Patient is willing to undergo a repeat procedure in order to establish reproducible response to the treatment. [facility] Medical History Acquired planovalgus deformity of left foot Lumbar degenerative disc disease Arthritis Osteoarthritis Depression Nicotine dependence Obesity HTN (hypertension) Anxiety Back pain Loud snoring Asthma Other intervertebral disc degeneration, lumbar region Insomnia, unspecified Generalized anxiety disorder Nicotine dependence, cigarettes, uncomplicated Sedative, hypnotic or anxiolytic dependence, uncomplicated Surgical History History of lumbar laminectomy History of surgical removal of ganglion cyst Hx of tonsillectomy Hx of carpal tunnel repair History of orthopedic surgery History of ankle surgery (~2012) History of hip surgery (~12/02/20) Social History Household Members: Spouse Housing: House Are you a primary daycare assistant to a significant other at home: No Do you presently have visiting nurse or other home services: No Comment: counts correct Patient Tobacco Use Status: Former Tobacco user Tobacco use type: Cigarette Cigarette Packs Per Day: 0.5 Cigarettes Per Day: 10 Years Smoked: 30 Substance Use Type: Marijuana Review of Systems Const All systems reviewed & are unremarkable except as noted in HPI and below Physical Exam Vital Signs: Last Vital Signs Pulse 70 08/01/24 08:57 BP 118/62 08/01/24 08:57 Pulse Ox 96 08/01/24 08:57 General: Appears afebrile. Alert and oriented. Mood and affect appropriate. Follows and participates in conversation appropriately. Respiratory effort is unlabored. No cough. Able to transition from sit to stand unassisted. Ambulates with bilaterally normal heel strike and toe off. Back/Spine/Pelvis Other: Lumbar flexion and extension is intact and does not reproduce pain. Mildly antalgic gait with limping. Demonstrates 5/5 left and 4/5 right due to pain strength of quadriceps bilaterally as well as flexion/dorsiflexion of bilateral feet against resistance. 2+ pedal pulses bilaterally. Straight leg rise with dorsiflexion negative bilaterally. +1 patellar and achilles reflexes bilaterally. Facet loading test positive bilaterally. Adina sign positive on the right, Mesfin?s reproduces moderate right groin pain and moderate right lateral hip and minimal right lower back pain. +FADIR. Moderate-severe groin pain with I/E hip rotations on the right. Valsalva maneuver is negative. Cervical Spine: cervical ROM normal and No Cervical spine tenderness Thoracic/Lumbar Spine: thoracic and lumbar spine normal to inspection, Thoracic/lumbar spine scar(s), Lasegue's sign negative, straight leg raise negative bilaterally, No thoracic spinal tenderness and No lumbar spinal tenderness Pelvis: buttock tenderness on the right and no sciatic notch tenderness Sacroiliac joints: on the right tender to palpation and on the left nontender Extrem General: Yes capillary refill normal, Yes no clubbing, cyanosis or edema and Yes no calf tenderness Results Reviewed Results Reviewed: XR LUMBOSACRAL SPINE WITH OBLIQUES 11/01/23 CLINICAL INFORMATION: Radiculopathy, lumbar region. COMPARISON: MRI scan of the lumbar spine dated 10/16/2023. TECHNIQUE: AP, lateral and lateral flexion and extension views of the lumbar spine were performed with the patient in the upright position. FINDINGS: There is a convex left lumbar scoliosis. Minimal grade 1 retrolisthesis is seen at all levels in the lumbar spine. There is mild degenerative disc disease with disc space narrowing and vertebral endplate sclerosis and spurring seen throughout the lumbar spine. There is moderate to severe facet arthropathy throughout the lumbar spine with a lower lumbar gradient. Limited range of motion is seen on the lateral flexion and extension views with no significant change in alignment noted. IMPRESSION: * Mild to moderate multilevel degenerative disc disease and moderate to severe facet arthropathy in the lumbar spine. * Minimal grade 1 retrolisthesis at all levels in the lumbar spine, likely related to degenerative disc disease and facet arthropathy. * No significant change in alignment is seen on the lateral flexion and extension views, though evaluation is limited given limited range of motion. MR LUMBAR SPINE WITHOUT CONTRAST 10/16/23 CLINICAL INFORMATION: Lumbar radiculopathy. COMPARISON: CT lumbar spine 12/24/2010. TECHNIQUE: MRI of the lumbar spine was obtained using routine sequences without contrast. FINDINGS: There is grade 1 anterolisthesis of L4 on L5 related to advanced facet degenerative changes at this level. Slight grade 1 retrolisthesis of L1 on L2 and L2 on L3. Vertebral body heights are preserved. There are type I degenerative endplate changes at L2-L3 and L3-L4. There is loss of intervertebral disc height and T2 signal intensity at multiple levels related to disc degeneration. The tip of the conus medullaris is located at T12-L1. No mass effect on the conus. Visualized distal cord signal intensity is normal. At L1-L2 there is an asymmetrically bulging disc to the left. Bilateral facet degenerative change. No canal stenosis. No mass effect on the traversing or foraminal nerve roots. At L2-L3 there is a diffusely bulging disc. Bilateral facet degenerative change. No canal stenosis. Subarticular zone narrowing causes abutment of the left traversing L3 nerve roots. No foraminal nerve root compression. At L3-L4 there is an asymmetrically bulging disc to the left. Bilateral facet degenerative change. No canal stenosis. Moderate to severe compression of the foraminal/extraforaminal segment of the left L3 nerve root and mild compression of the right L3 foraminal nerve root. At L4-L5 there is a pseudodisc bulge. Advanced bilateral facet degenerative change. There is a synovial cyst arising from the right L4-L5 facet joint causing asymmetric compression of the right traversing L5 nerve roots. This finding is best depicted on axial image 20 of 28 series 5. Mild mass effect on the left L4 foraminal nerve root. At L5-S1 there is a bulging disc. Bilateral facet degenerative change. No canal stenosis. No mass effect on the traversing or foraminal nerve roots. Limited visualization of the retroperitoneal anatomy reveals no abnormal finding. Psoas and paraspinal muscle groups are symmetric. IMPRESSION: There is multilevel degenerative spondylosis of the lumbar spine with grade 1 anterolisthesis of L4 on L5 related to advanced facet degenerative changes at this level. Slight grade 1 retrolisthesis of L1 on L2 and L2 on L3. No canal stenosis. There are varying degrees of mass effect on the traversing and foraminal segments the nerve roots as described above. For instance there is a synovial cyst arising from the right L4-L5 facet joint causing asymmetric compression of the right traversing L5 nerve roots. There is also moderate to severe compression of the foraminal/extraforaminal segment of the left L3 nerve root related to degenerative changes at L3-L4. XR hip RT min 2V 08/16/23 IMPRESSION: 1. Mild osteoarthritis in the right hip. 2. Appropriate alignment of the left total hip arthroplasty without evidence of complications. 3. Degenerative spondylosis in the lower lumbar spine. Assessment & Plan Assessment & Plan (1) Right hip pain: Code(s): M25.551 - Pain in right hip Category: Medical (2) Chronic SI joint pain: Code(s): M53.3 - Sacrococcygeal disorders, not elsewhere classified; G89.29 - Other chronic pain Category: Medical (3) Osteoarthritis of right hip: Code(s): M16.11 - Unilateral primary osteoarthritis, right hip Category: Medical (4) History of lumbar laminectomy: Code(s): Z98.890 - Other specified postprocedural states Category: Surgical Plan Patient is one week status post right diagnostic SIJ injection with good pain relief in the projection of his right lower back and right buttock for 24 hours but continues to have significant right groin and hip pain with walking, weight bearing, ROM, and popping and clicking sounds. He has pending Right hip MRI this Monday to further evaluate right hip and groin pain that has been debilitating and resistant to conservative treatments. All questions were answered and the patient is in agreement of plan. Follow-up MRI results and sooner as needed. Coding Level of Care Code Est Pt Level 3 (42141) Complex EM visit Add On G2211 Diagnoses Right hip pain M25.551 Chronic SI joint pain M53.3; G89.29 Osteoarthritis of right hip M16.11 History of lumbar laminectomy Z98.890
[2024-08-01 08:57] VITALS: BP 118/62; PULSE 70; RESP 16; O2SAT 96; BMI 35.4
== END 2024-08-01 09:07 | disposition home or self-care (01) ==
PROVIDERS: PCP Internal Medicine; Visit Provider Nurse Practitioner Family
DX: M25.551 Pain in right hip (principal); M53.3 Sacrococcygeal disorders, not elsewhere classified; G89.29 Other chronic pain; M16.11 Unilateral primary osteoarthritis, right hip; Z98.890 Other specified postprocedural states
CPT/HCPCS: 99213

== ENCOUNTER → 2024-08-01 08:51 | Outpatient (BNVA) | payer MEDICAID, SELFPAY | PROVIDERS: PCP Internal Medicine; Visit Provider Nurse Practitioner Family | DX: M53.3 Sacrococcygeal disorders, not elsewhere classified (principal); M16.11 Unilateral primary osteoarthritis, right hip; G89.29 Other chronic pain; Z98.890 Other specified postprocedural states | CPT/HCPCS: 99212 ==

== ENCOUNTER 2024-09-17 09:55 | Outpatient (AMB) | payer MEDICAID, SELFPAY ==
[2024-09-17 10:12] VITALS: BMI 35.4
--- NOTE | 2024-09-17 10:12 | MHC.OFFVIS ---
Vital Signs 09/17/24 10:12 Height 6 ft Weight 261 lb BMI 35.4 Intake Visit Reasons: OV- Right hip pain Intake Note: Rosie is a 48 year old male who presents with complaints of progressively worsening right hip pain. The patient did undergo left total hip replacement surgery by Dr. Purdy in [place] approximately 10 years ago. He denies any pain in his left hip. He describes his right hip pain as sharp and severe in nature. Most of his right hip pain is in his groin. States that his right hip feels like his left hip did prior to his left total hip replacement surgery. The patient did undergo low back surgery by Dr. Ferrell in January of 2024. He states that following that surgery the shooting pain in his right leg has resolved but his groin pain remains disabling. He has done physical therapy exercises which aggravated his pain. He has also tried Tylenol and anti-inflammatory medicines which gave him minimal relief. Allergies red dye Allergy (Intermediate, Verified 09/17/24 10:13) Itching, blotchy Medication List - Last Reconciled 09/17/24 by Davi Encinas MD albuterol sulfate 90 mcg/actuation (ProAir HFA) 2 puffs inhalation Q4-6H PRN alprazolam 1-2 tablets orally; amlodipine 5 mg PO DAILY budesonide-formoterol 160-4.5 mcg/actuation (Symbicort) 2 puffs inhalation BID bupropion HCl SR 150 mg PO BID oxycodone-acetaminophen 5-325 mg 1 tab PO Q4-6H PRN quetiapine 25 - 75 mg PO BEDTIME sertraline 100 mg PO BID valsartan 160 mg PO DAILY [facility] Medical History Acquired planovalgus deformity of left foot Lumbar degenerative disc disease Arthritis Osteoarthritis Depression Nicotine dependence Obesity HTN (hypertension) Anxiety Back pain Loud snoring Asthma Other intervertebral disc degeneration, lumbar region Insomnia, unspecified Generalized anxiety disorder Nicotine dependence, cigarettes, uncomplicated Sedative, hypnotic or anxiolytic dependence, uncomplicated Surgical History History of lumbar laminectomy History of surgical removal of ganglion cyst Hx of tonsillectomy Hx of carpal tunnel repair History of orthopedic surgery History of ankle surgery (~2012) History of hip surgery (~12/02/20) Social History Household Members: Spouse Housing: House Are you a primary day care provider to a significant other at home: No Do you presently have visiting nurse or other home services: No Comment: counts correct Patient Tobacco Use Status: Former Tobacco user Tobacco use type: Cigarette Cigarette Packs Per Day: 0.5 Cigarettes Per Day: 10 Years Smoked: 30 Substance Use Type: Marijuana Physical Exam Vital Signs: BMI result Body Mass Index 35.4 Const Other: Well-nourished well-developed very friendly male awake alert and oriented x3 in no acute distress Extrem Other: Right hip examination shows decreased range of motion compared to his left hip, pain with range of motion, no tenderness over his bursa Results Reviewed Results Reviewed: MRI of his right hip from [facility] show edema within the femoral head consistent with severe degenerative joint disease as well as possible avascular necrosis Assessment & Plan Assessment & Plan (1) Right hip pain: Code(s): M25.551 - Pain in right hip Category: Medical Plan Mr. 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 I had a lengthy discussion with the patient regarding the treatment options. At this he has failed continued non operative treatments. He is interested in discussing total hip replacement surgery further. Thus, I will arrange for him to have a follow-up appointment with my partner Dr. Prince. He will continue with his activity modifications in the meantime. Feel free to call me at any time should questions regarding his orthopedic management arise. I spent 21 minutes in reviewing the patient's records and imaging studies, seeing the patient and documenting in the medical record. Coding Level of Care Code Est Pt Level 3 (52449) Complex EM visit Add On G2211 Diagnoses Right hip pain M25.551
== END 2024-09-17 10:46 | disposition home or self-care (01) ==
LOC: HO.HOS 09:55
PROVIDERS: PCP Internal Medicine; Visit Provider Orthopaedic Surgery
DX: M25.551 Pain in right hip (principal)
CPT/HCPCS: 99213

== ENCOUNTER → 2024-09-17 09:55 | Outpatient (BNVA) | payer MEDICAID, SELFPAY | PROVIDERS: PCP Internal Medicine; Visit Provider Orthopaedic Surgery | DX: M25.551 Pain in right hip (principal); Z96.642 Presence of left artificial hip joint | CPT/HCPCS: 99212 ==

== ENCOUNTER 2024-10-14 09:02 | Outpatient (REF) | payer MEDICAID, SELFPAY ==
--- NOTE | ~2024-10-14 | XR_ITS ---
EXAMINATION: XR PELVIS 1-2 VIEWS HISTORY: M25.559 - Pain in unspecified hip COMPARISON: Comparison is made with the prior examination dated 08/16/2023. FINDINGS: A single AP view of the pelvis is submitted. The patient is status post left total hip arthroplasty. The orthopedic elements are in anatomic alignment on this single AP view. There is no radiographic evidence of loosening. No fracture or dislocation is seen. There is moderate joint space narrowing of the right hip superiorly. This has progressed since the prior study. The soft tissues are unremarkable. XR/XR pelvis 1-2V IMPRESSION: Status post left total hip arthroplasty. Moderate narrowing of the superior aspect of the right hip with progression since the prior study. Electronically signed by: Rufus Torres MD 10/14/2024 03:29 PM EDT
== END 2024-10-14 09:03 | disposition home or self-care (01) ==
LOC: HO.HOSX 09:02
PROVIDERS: Visit Provider Orthopaedic Surgery
DX: M25.559 Pain in unspecified hip (principal); Z96.642 Presence of left artificial hip joint; M16.11 Unilateral primary osteoarthritis, right hip
CPT/HCPCS: 72170; 99212

== ENCOUNTER 2024-10-14 09:06 | Outpatient (AMB) | payer MEDICAID, SELFPAY ==
--- NOTE | 2024-10-14 09:07 | MHC.OFFVIS ---
Vital Signs 10/14/24 09:08 Height 6 ft Weight 261 lb BMI 35.4 Intake Visit Reasons: OV - Right Hip OA - Discuss ANTONIO Intake Note: Rosie is a 49 year old male who presents today for a follow up appointment for his ongoing right hip OA. He was last seen by Dr. Encinas where he reports severe right going pain that is affecting his daily life. Today he would like to discuss a Right Total Hip Arthroplasty. Hx of Left ANTONIO with Dr. Purdy about 10 years ago Allergies red dye Allergy (Intermediate, Verified 09/17/24 10:13) Itching, blotchy HPI HPI OV - Right Hip OA - Discuss ANTONIO: Details: Rosie is a 49 year old male who presents today for a follow up appointment for his ongoing right hip OA. He was last seen by Dr. Encinas where he reports severe right going pain that is affecting his daily life. Today he would like to discuss a Right Total Hip Arthroplasty. His right hip feels like his left hip before he had hip surgery. 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 Prior to his left hip surgery he felt like his left leg was shorter but after the hip replacement surgery feels like his left leg was longer. He uses a lift in the contralateral shoe. He had no other issues with his hip replacement and did well. 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 He states his right hip bothers him when he does this and he is having a hard time walking for even 5 minutes without pain and a significant limp. He is trying to quit smoking. He was told that nicotine impairs healing. Hx of Left ANTONIO with Dr. Purdy about 3 years ago. [facility] Medical History (Updated 10/14/24 @ 10:38 by Bryan Prince MD) Acquired planovalgus deformity of left foot Lumbar degenerative disc disease Arthritis Osteoarthritis Depression Nicotine dependence Obesity HTN (hypertension) Anxiety Back pain Loud snoring Asthma Other intervertebral disc degeneration, lumbar region Insomnia, unspecified Generalized anxiety disorder Nicotine dependence, cigarettes, uncomplicated Sedative, hypnotic or anxiolytic dependence, uncomplicated Surgical History History of lumbar laminectomy History of surgical removal of ganglion cyst Hx of tonsillectomy Hx of carpal tunnel repair History of orthopedic surgery History of ankle surgery (~2012) History of hip surgery (~12/02/20) Social History Household Members: Spouse Housing: House Are you a primary assisted living care manager to a significant other at home: No Do you presently have visiting nurse or other home services: No Comment: counts correct Patient Tobacco Use Status: Former Tobacco user Tobacco use type: Cigarette Cigarette Packs Per Day: 0.5 Cigarettes Per Day: 10 Years Smoked: 30 Substance Use Type: Marijuana Physical Exam Vital Signs: BMI result Body Mass Index 35.4 Extrem Other: On exam is a pleasant gentleman in no acute distress. He has Trendelenburg gait antalgia on the right and a positive impingement test on the right. Results Reviewed Results Reviewed: I personally reviewed relevant radiographs. Left ANTONIO in expected post operative position with no hardware complications or evidence of loosening RIght hip progressive moderate to severe osteoarthritis. Assessment & Plan Assessment & Plan (1) Osteoarthritis of right hip: Code(s): M16.11 - Unilateral primary osteoarthritis, right hip Category: Medical Plan: This is a 49-year-old gentleman with moderate to severe right hip osteoarthritis. He feels he can not ambulate even short distances and work is incredibly difficult for him to get through the day without severe pain. This is limiting his life. He had a left hip replacement which was successful. He does have some perceived leg length discrepancy with the left being longer than the right now and uses a right shoe lift. This is multifactorial however and radiographs show similar leg lengths at the hips. He has a history of the epiphysiodesis on the right and slipped capital femoral epiphysis on the left. I do think he would benefit from hip replacement. He is on the young side but he is severely debilitated by his condition. I discussed the surgery with him including the risks, benefits and alternatives. I do think we should progress forward and he agrees. We will begin the preoperative clearance process. I will introduce him to our nurse navigator he will follow up in 2 months for check in on his smoking cessation. (2) Nicotine dependence, cigarettes, uncomplicated: Code(s): F17.210 - Nicotine dependence, cigarettes, uncomplicated Category: Medical Plan: Mr. Llamas as he is of the Ms. Guided understanding that it is nicotine that is the problem in cigarettes rather than the inhalation of toxic fumes. I recommend patch and/or gum 2 aid in his attempt to quit smoking. Orders: Orders XR pelvis 1-2V Today M25.559 - Pain in unspecified hip Coding Level of Care Code Est Pt Level 4 (74989) Diagnoses Osteoarthritis of right hip M16.11 Nicotine dependence, cigarettes, uncomplicated F17.210
[2024-10-14 09:08] VITALS: BMI 35.4
== END 2024-10-14 09:44 | disposition home or self-care (01) ==
LOC: HO.HOS 09:07
PROVIDERS: PCP Internal Medicine; Visit Provider Orthopaedic Surgery
DX: M16.11 Unilateral primary osteoarthritis, right hip (principal); Z96.642 Presence of left artificial hip joint; F17.210 Nicotine dependence, cigarettes, uncomplicated
CPT/HCPCS: 99214

== ENCOUNTER → 2024-10-14 09:08 | Outpatient (BNV) | payer MEDICAID, SELFPAY | PROVIDERS: Visit Provider Radiology Diagnostic Radiology | DX: M25.552 Pain in left hip (principal); Z96.642 Presence of left artificial hip joint | CPT/HCPCS: 72170 ==

== ENCOUNTER 2024-12-16 09:01 | Outpatient (REF) | payer MEDICAID, SELFPAY ==
--- NOTE | ~2024-12-16 | US_ITS ---
CLINICAL HISTORY: abd pain, MELENDEZ US abdomen complete with color Doppler Comparison: None Findings: Pancreas obscured by bowel gas. Visualized portion of the abdominal aorta of normal caliber. Limited assessment of the IVC. Liver normal size and coarsened echotexture. Right lobe 13.3 cm length. No focal hepatic masses. Equivocal mild intrahepatic ductal dilatation. Common bile duct not well visualized Physiologic distention of the gallbladder. No gallstones or sludge. No gallbladder wall thickening. No pericholecystic fluid. No sonographic [place] sign. Main portal vein antegrade. Right kidney normal size, 9.0 cm in length. Normal cortical width and echotexture. No solid or cystic renal masses. No nephrolithiasis or hydronephrosis. Left kidney normal, 10.0 cm in length. Normal cortical width and echotexture. No solid or cystic renal masses. No nephrolithiasis or hydronephrosis. Spleen measures 11.7 cm. No splenic masses. No ascites. No lymphadenopathy. Impression: 1. Limited exam due to patient's body habitus and overlying bowel gas. 2. Coarsened hepatic echotexture reflecting hepatic steatosis or diffuse hepatocellular disease. Equivocal intrahepatic ductal dilatation. Common bile duct not well demonstrated. No evidence of cholelithiasis or cholecystitis. Multiphase MRI of the abdomen may be of further diagnostic value. 3. Spleen upper limits of normal in size. This document has been electronically signed by: Avinash Brown MD on 12/17/2024 08:29:16
== END 2024-12-16 09:02 | disposition home or self-care (01) ==
LOC: HO.US 09:01
PROVIDERS: PCP Physician Assistant Medical; Visit Provider Physician Assistant Medical
DX: K75.81 Nonalcoholic steatohepatitis (NASH) (principal)
CPT/HCPCS: 76700

== ENCOUNTER → 2024-12-16 09:13 | Outpatient (BNV) | payer MEDICAID, SELFPAY | PROVIDERS: PCP Physician Assistant Medical; Visit Provider Radiology Diagnostic Radiology | DX: K76.0 Fatty (change of) liver, not elsewhere classified (principal) | CPT/HCPCS: 76700 ==

== ENCOUNTER 2025-01-24 | Outpatient (REF) | payer MEDICAID, SELFPAY ==
--- OUTSIDE RECORDS SUMMARY | 2025-03-05 13:39 | XMS_ITS | Clinical Summary ---
Author Organization [facility] Address [address] [place] [phone] Phone Care Team Providers Care Professional Fee Coder Name Role Phone Jean Tracey MD Primary Care Provider + Allergies Active Allergy Reactions Criticality Noted Date Comments Red Dye Hives,Itching 11/01/2022 Medications albuterol (VENTOLIN HFA) 90 mcg/actuation inhaler Ventolin HFA 90 mcg/actuation aerosol inhaler INHALE 2 PUFFS EVERY 4 HOURS BY INHALATION ROUTE NEEDED Active ALPRAZolam (XANAX) 1 MG tablet alprazolam 1 mg tablet TAKE 1 TO 2 TABLETS BY MOUTH DAILY NEEDED Active amLODIPine (NORVASC) 5 MG tablet Take 1 tablet by mouth every morning. 3 Active SYMBICORT 160-4.5 mcg/actuation inhaler TAKE 2 PUFFS TWICE A DAY RINSE MOUTH OUT AFTER USE 3 Active gabapentin (NEURONTIN) 100 MG capsule gabapentin 100 mg capsule TAKE 2 CAPSULES BY MOUTH 3 TIMES A DAY Active ibuprofen (ADVIL,MOTRIN) 600 MG tablet TAKE 1 TABLET BY MOUTH EVERY 6 HOURS, FOR 10 DAYS NEEDED FOR PAIN*DO NOT TAKE WITH MELOXICAM 3 Active Active Problems No known active problems Social History Tobacco Use Types Packs/Day Years Used Date Smoking Tobacco: Every Day Cigarettes Smokeless Tobacco: Never Tobacco Cessation:Ready to Q uit: Not Asked; Counseling Given: Not Answered Education Answer Date Recorded Are you interested in more education? Not on rubina e 10/28/2022 Are you concerned about learning? Not on file 10/28/2022 No 10/28/2022 No 10/28/2022 Digital Access Answer Date Recorded No 11/23/2022 No 11/23/2022 Reliable internet access at home? Not on file 11/23/2022 Device with a working camera? Not on file Sex and Gender Information Value Date Recorded Sex Assigned at Not on file Legal Sex Male 11:49 AM EDT Gender Identity Not on file Sexual Orientation Not on file Last Filed Vital Signs Vital Sign Reading Time Taken Comments Blood Pressure 146/94 11/17/2022 11:03 AM EDT Pulse - - Temperature 37.1 C (98.8 F) 11/17/2022 11:03 AM EDT Respiratory Rate - - Oxygen Saturation - - Inhaled Oxygen Concentration - - Weight 104.7 kg (230 lb 12.8 oz) 2022 11:03 AM EDT Height 177.8 cm (5' 10 ) 11/17/2022 11: 03 AM EDT Body Mass Index 33.12 11/17/2022 11:03 AM EDT Plan of Treatment Health Maintenance Due Date Last Done Comments Adult Td,Tdap Booster 1974 LIPID PANEL 1974 DEPRESSION SCREENING 1986 SMOKING Hx and SMOKELESS TOB ACCO SCREENING 1987 HEPATITIS C SCREENING 1992 HIV ONE-TIME SCREENING (18-6 5 YEARS) 1992 PNEUMOCOCCAL VACCINES (50+ y ears) (1 of 2 - PCV) 1993 SCREENING FOR DIABETES 2009 COLOGUARD 2019 COLONOSCOPY 2019 COLORECTAL CANCER SCREENING 2019 FIT TEST 2019 FOBT 2019 SIGMOIDOSCOPY 2019 VIRTUAL COLONOSCOPY 2019 COVID-19 VACCINE (1 - 2023-2 5 season) 2024 ZOSTER VACCINES (1 of 2) 2024 INFLUENZA VACCINE (#1) 2025 HEPATITIS A VACCINES Aged Out No long er eligible based on patient's age to complete this topic HIB VACCINES Aged Out No longer eligi ble based on patient's age to complete this topic MENINGOCOCCAL VACCINES (ACWY) Aged Out No longer eligible based on patient's age to complete this topic MENINGOCOCCAL VACCINES (B) Aged Out N o longer eligible based on patient's age to complete this topic Medical Devices Not on file Insurance [address] [address] [facility] Care Teams Professional Fee Coder Relationship Specialty Start Date End Date Jean Tracey MD [address] [facility] [address] [place] [id number] PCP - General Internal Medicine 10/28/22 Additional Source Comments The information contained in this document represents components of the legal health record. It is not the complete legal health record.[facility]
== END 2025-01-24 00:01 | disposition home or self-care (01) ==
LOC: CF
PROVIDERS: PCP Physician Assistant Medical; Visit Provider Physician Assistant Medical
DX: F17.210 Nicotine dependence, cigarettes, uncomplicated (principal); F12.90 Cannabis use, unspecified, uncomplicated
CPT/HCPCS: G0296

== ENCOUNTER 2025-01-24 10:46 | Outpatient (AMB) | payer MEDICAID, SELFPAY ==
--- NOTE | 2025-01-24 07:47 | A.OFFVIS_ITS ---
Intake Visit Reasons: Current Smoker Allergies red dye Allergy (Intermediate, Verified 09/17/24 10:13) Itching, blotchy HPI HPI Current Smoker: Details: Initial telehealth visit via phone for this 49yo smoker with a 35PYH. Patient started smoking at age 12 for 37 years at 1ppd. Now less than 1/2ppd. . Uses marijuana for sleep. Denies second hand smoke exposure. Denies exposure to chemicals or substances like asbestos. . Denies known family history of lung cancer. Denies personal history of cancers. Denies chest CT in last year. . Denies recent travel outside the [place]. Denies recent respiratory illness or recent hospitalization for respiratory issues. Admits testing positive for COVID. Denies receiving COVID Vaccine. . Denies fever, chills, new/worsening cough, hemoptysis, hoarseness or dysphagia. Denies significant chest pain, significant dyspnea or unintentional weight loss. Patient Lung Cancer Screening Questionnaire reviewed with patient by provider. . Shared Decision Making Completed. Patient meets criteria. Discussed in detail with patient, the risk vs benefit of LDCT screening. Patient consents to proceed with scan. Discussed smoking cessation. [facility] Medical History (Updated 01/24/25 @ 10:29 by Gloria Stoddard PA-C) Acquired planovalgus deformity of left foot Lumbar degenerative disc disease Arthritis Osteoarthritis Depression Obesity HTN (hypertension) Back pain Loud snoring Asthma Other intervertebral disc degeneration, lumbar region Insomnia, unspecified Generalized anxiety disorder Nicotine dependence, cigarettes, uncomplicated Sedative, hypnotic or anxiolytic dependence, uncomplicated Surgical History History of lumbar laminectomy History of surgical removal of ganglion cyst Hx of tonsillectomy Hx of carpal tunnel repair History of orthopedic surgery History of ankle surgery (~2012) History of hip surgery (~12/02/20) Social History (Updated 01/24/25 @ 10:29 by Gloria Stoddard PA-C) Household Members: Spouse Housing: House Are you a primary skin care specialist to a significant other at home: No Do you presently have visiting nurse or other home services: No Comment: counts correct Patient Tobacco Use Status: Current everyday Tobacco user Tobacco use type: Cigarette Cigarette Packs Per Day: 0.5 Cigarettes Per Day: 10 Years Smoked: (onset 12yo, 1ppd x 37yrs, now 1/2ppd - 35pyh) Substance Use Type: Marijuana Telehealth Telehealth Telehealth Platform: Telephone Location of provider rendering services: practice address Location of patient: address on file Patient Identification confirmed using: Name, : Yes Telehealth method: voice only Patient verbally consented to treatment: Yes Patient verbally consented to billing insurance company: Yes Patient informed of any privacy concerns related to visit: Yes Minutes spent on Phone/Video with Pt.: 15 Assessment & Plan Assessment & Plan (1) Nicotine dependence, cigarettes, uncomplicated: Comment: (onset 12yo, 1ppd x 37yrs, now 1/2ppd - 35pyh) Code(s): F17.210 - Nicotine dependence, cigarettes, uncomplicated Category: Medical Plan: - SDM telehealth visit completed today via phone. - Patient meets criteria for LDCT for lung cancer screening purposes and is asymptomatic. - Smoking cessation counseling offered. Patients can always call [phone]. - Will arrange for a LDCT scan of the chest for screening purposes at [facility]. - Risks, benefits, and alternatives were discussed in detail and the patient agrees to proceed. - Risks discussed include but are not limited to: radiation exposure, anxiety during testing and while awaiting results, false negatives, false positives and possibility of additional intervention such as further imaging or surgical procedures for benign disease. - Benefits are obviously detection of lung cancer at an early stage which can lead to improved outcomes. - Discussed the importance of screening program compliance with adherence to yearly LDCT scan as scheduled - or sooner interval scans for personalized screening regimen. - Discussed follow up plan. Our office will send a letter discussing results and if needed set up phone call and office visit based on CT findings. - Patient educated on results categorization and the management decisions for suspicious findings potentially found on the screening LDCT scan. Any patient with a Lung RADS score of 3 or 4 will be reviewed by a multidisciplinary team at [facility] to form a plan of action in regards to scan findings. - If further work up is warranted for a suspicious lung finding this will be followed by the Lung Cancer Screening program in conjunction with the Thoracic Surgery Department at [facility]. - A copy of the office note and LDCT will be sent to the patient's PCP - as well as documentation on any associated further plans of care. - Incidental findings on LDCT are the PCP's responsibility. These findings are indicated with an S finding on the LDCT Assessment. A note discussing the findings will be sent to the PCP who is then responsible for further management. - All questions answered.? Coding Level of Care Code Lung Cancer Screening G0296 Diagnoses Nicotine dependence, cigarettes, uncomplicated F17.210
== END 2025-01-24 10:46 | disposition home or self-care (01) ==
LOC: HO.HPS 10:46
PROVIDERS: PCP Physician Assistant Medical; Referring Provider Physician Assistant Medical; Visit Provider Physician Assistant Medical
DX: F17.210 Nicotine dependence, cigarettes, uncomplicated (principal)
CPT/HCPCS: G0296

== ENCOUNTER → 2025-02-14 11:12 | Outpatient (BNVA) | payer MEDICAID, SELFPAY | PROVIDERS: PCP Physician Assistant Medical | DX: Z01.818 Encounter for other preprocedural examination (principal) ==

== ENCOUNTER 2025-03-13 09:07 | Outpatient (REF) | payer MEDICAID, SELFPAY ==
--- NOTE | ~2025-03-13 | XR_ITS ---
EXAMINATION: XR HIP, RIGHT CLINICAL INFORMATION: M25.551 - Pain in right hip COMPARISON: August 16, 2023 TECHNIQUE: AP and oblique views of the right hip. AP view pelvis. FINDINGS: Asymmetric joint space narrowing, right coxofemoral joint. Sclerosis along the articular surface of the right coxofemoral joint. No acute fracture or dislocation. No lytic or blastic lesions. Total left hip arthroplasty prosthesis with loosening along the acetabular component. Degenerative changes in the symphysis pubis. XR/XR hip RT min 2V IMPRESSION: Mild to moderate osteoarthrosis/osteoarthritis, right coxofemoral joint. Concerning loosening in the acetabular component of the left hip prosthesis. Electronically signed by: Juan Pablo Worrell MD 03/13/2025 02:42 PM EDT
--- OUTSIDE RECORDS SUMMARY | 2025-03-14 09:59 | XMS_ITS | Clinical Summary ---
Author Organization [facility] Address [address] [place] [id number] Phone Care Team Providers Care Technical Artist Name Role Phone Jean Tracey MD Primary [...] topic Medical Devices Not on file [place] [address] [facility] Care Teams Technical Artist Relationship Specialty Start Date End Date Jean Tracey MD [address] [facility] [address] [place] [address] PCP - General Internal Medicine 10/28/22 Additional Source Comments The information contained in this document represents components of the legal health record. It is not the complete legal health record.[facility]
== END 2025-03-13 09:08 | disposition home or self-care (01) ==
LOC: HO.HOSX 09:07
PROVIDERS: Visit Provider Physician Assistant
DX: Z01.818 Encounter for other preprocedural examination (principal); M16.11 Unilateral primary osteoarthritis, right hip; Z96.641 Presence of right artificial hip joint; Z79.899 Other long term (current) drug therapy
CPT/HCPCS: 73502; 99212

== ENCOUNTER 2025-03-13 14:16 | Outpatient (AMB) | payer MEDICAID, SELFPAY ==
--- NOTE | 2025-03-13 08:28 | A.OFFVIS_ITS ---
Vital Signs 03/13/25 14:43 Height 6 ft Weight 261 lb BMI 35.4 Intake Visit Reasons: Pre-Op: R ANTONIO w/NE 03/18/25 Intake Note: Rosie is a 49 year old male who presents today for a preoperative visit to discuss right ANTONIO, scheduled with Dr. Prince on 03/18/25. Pain management agreement reviewed and signed. Allergies red dye Allergy (Intermediate, Verified 03/13/25 14:43) Itching, blotchy Medication List - Last Reconciled 03/13/25 by Carlene Barnett PA-C albuterol sulfate 90 mcg/actuation (ProAir HFA) 2 puffs inhalation Q4-6H PRN alprazolam 1-2 tablets orally; budesonide-formoterol 160-4.5 mcg/actuation (Symbicort) 2 puffs inhalation BID [Folding Front Wheeled walker Duration: 99 days] hydrochlorothiazide 12.5 mg PO QAM nicotine (polacrilex) 2 mg buccal Q2-4H oxycodone-acetaminophen 5-325 mg 1 tab PO Q4-6H PRN quetiapine 25 - 75 mg PO BEDTIME [Raised toilet seat duration - 99 days] HPI Comments Details: Mr Capellan presents to the office today for Orthopedic Pre op clearance. He is scheduled for right total hip arthroplasty with Dr. Prince on 03/18/2025. Patient has had severe right hip pain specifically in the groin region which is affecting his daily life. 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 He states his right hip bothers him when he does this and he is having a hard time walking for even 5 minutes without pain and a significant limp. Patient has a history of left total hip arthroplasty by Dr. Purdy approximately 2020. 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 Postop recovery for both procedures were uncomplicated. Patient lives at home with his . They live in a 2 level home with 16 steps to enter. Patient owns a walker. PCP clearance obtained on 01/22/[address] Montoya: Per med clearance notes patient is medically overall fairly stable. He has hypertension, there is likely a low-grade COPD in the context of ongoing smoking. He does not identify any cardiopulmonary limitations. Patient was advised to discontinue NSAIDs fish oil turmeric herbal supplements and multivitamins 10 days before procedure. No absolute medical contraindications identified to proceeding with the proposed surgery. Quite smoking- [facility] Medical History (Updated 02/17/25 @ 13:42 by Deborah Cast RN) Fear of needles Renal calculi Bruxism (teeth grinding) Anxiety Acquired planovalgus deformity of left foot Lumbar degenerative disc disease Arthritis Osteoarthritis Depression Obesity HTN (hypertension) Back pain Loud snoring Asthma Other intervertebral disc degeneration, lumbar region Insomnia, unspecified Generalized anxiety disorder Nicotine dependence, cigarettes, uncomplicated Sedative, hypnotic or anxiolytic dependence, uncomplicated Surgical History Hx of foot surgery (~2017) History of lumbar laminectomy History of surgical removal of ganglion cyst Hx of tonsillectomy Hx of carpal tunnel repair History of orthopedic surgery History of ankle surgery (~2012) History of hip surgery (~12/02/20) Social History Household Members: Spouse Housing: House Are you a primary respiratory care assistant to a significant other at home: No Do you presently have visiting nurse or other home services: No Comment: counts correct Patient Tobacco Use Status: Current everyday Tobacco user Tobacco use type: Cigarette Years Smoked: (onset 12yo, 1ppd x 37yrs, now 1/2ppd - 35pyh) Smoked in Last 30 Days: Yes Use of substances other than those prescribed or required for medical reasons: Yes Substance Use Type: Marijuana Substance Use Frequency: Occasionally Have you been hit, kicked, punched, or otherwise hurt by someone within the past year? If so, by whom?: No Are you DNR?: No Advance Directives: No Advance Directives Information Provided: Yes Advance Directives on File: No Poor oral hygiene: No Review of Systems Const All systems reviewed & are unremarkable except as noted in HPI and below Physical Exam Vital Signs: BMI result Body Mass Index 35.4 Const General: cooperative, healthy appearing, comfortable, no acute distress, well developed and alert Orientation/consciousness: patient oriented x3 HEENT Head: Yes normal to inspection, Yes normocephalic and Yes atraumatic Eyes General: appearance normal, both eyes and all related structures Neck Neck: Yes normal visual inspection and Yes no lymphadenopathy Resp Effort & Inspection: normal respiratory effort and able to speak in complete sentences Cardio Rate: regular rate Peripheral pulses: Peripheral pulses 2+ throughout GI Inspection: Yes normal to inspection Palpation (GI): Soft to palpation Skin General skin exam: no rashes or lesions noted Neuro General: patient oriented x3 Extrem Other: Right hip skin intact with no open wounds or abrasions. He has Trendelenburg gait antalgia on the right and a positive impingement test on the right. Psych Appearance: grossly normal Mental Status: mental status grossly normal Results Reviewed Results Reviewed: X-rays of the right hip obtained in the office today for surgical planning. Assessment & Plan Assessment & Plan (1) Osteoarthritis of right hip: Code(s): M16.11 - Unilateral primary osteoarthritis, right hip Category: Medical Plan Mr Capellan has exhausted all conservative measures consisting of lifestyle modifications, physical therapy, analgesics, corticosteroid injections and use of assisted devices and continues to have significant limitations in daily activities along with decreased quality of life. Given the patient's desire to improve their quality of life, surgical intervention consisting of joint replacement surgery is recommended at this time.? We discussed the procedure in detail today; which includes pre op preparation with labs and reviewing patients medication regimen prior to surgery. Patient was sent to the lab for CBC, BMP and type and screen. I discussed at length the post op course which includes physical therapy services in the hospital along with the discharge routine and the patients plan upon discharge. Patient plans to discharge home with VNA services. I explained to the patient, once they are DC home, they will receive VNA services which will include PT 2-3x per week. We also discussed their choice for outpatient PT once they are discharged from home PT. Patient would like to attend [facility]. An order was placed and the patient will contact them to make an appointment. Post op DVT ppx was also discussed and the considering the patient denies history of DVT/PE or history of cancer he will be placed on aspirin 325 mg p.o. b.i.d. for DVT prophylaxis. I reviewed with the patient their post op pain medication regimen along with the detailed wean program. The patient did express understanding of this and agreed to the narcotic policy. Lastly, I discussed with the patient the risks to the procedure. Risks including but not limited to infection, injury to surrounding nerves, tissue , bone, small and large vessels, stiffness, aseptic loosening, fracture, dislocation, amputation, DVT/PE along with intraoperative complications including but not limited to . The patient does express understanding, all questions were answered and the patient would like to proceed? with right total hip arthroplasty with Dr. Prince. Consents were signed and dated while in the office today.? Post-Operative Recovery Notes: * DVT ppx : Aspirin * [facility] Delmis powera * Physical Therapy: [facility] * Walker obtained Orders: Orders XR hip RT min 2V Today M25.551 - Pain in right hip Type and Screen 25 Days Z01.818 - Encounter for other preprocedural examination Basic Metabolic Panel Today Z01.818 - Encounter for other preprocedural examination PT Evaluation and Treatment Today Z96.641 - Presence of right artificial hip joint Complete Blood Count Auto Diff Today Z01.818 - Encounter for other preprocedural examination Coding Level of Care Code Est Pt Level 4 (35988) Complex EM visit Add On G2211 Diagnoses Osteoarthritis of right hip M16.11
[2025-03-13 14:43] VITALS: BMI 35.4
--- OUTSIDE RECORDS SUMMARY | 2025-03-13 18:03 | XMS_ITS | Clinical Summary ---
Author Organization [facility] Address [address] [place] [id number] Phone Care Team Providers Care Bike Mechanic Name Role Phone Jean Tracey MD Primary [...] topic Medical Devices Not on file [place] [address] [place] [address] [facility] Care Teams Bike Mechanic Relationship Specialty Start Date End Date Jean Tracey MD [address] [facility] [address] [place] [address] PCP - General Internal Medicine 10/28/22 Additional Source Comments The information contained in this document represents components of the legal health record. It is not the complete legal health record.[facility]
== END 2025-03-13 15:16 | disposition home or self-care (01) ==
LOC: HO.HOS 14:17
PROVIDERS: PCP Physician Assistant Medical; Visit Provider Physician Assistant
DX: M16.11 Unilateral primary osteoarthritis, right hip (principal)
CPT/HCPCS: 99214

== ENCOUNTER → 2025-03-13 14:20 | Outpatient (BNV) | payer MEDICAID, SELFPAY | PROVIDERS: Visit Provider Radiology Diagnostic Radiology | DX: M16.11 Unilateral primary osteoarthritis, right hip (principal) | CPT/HCPCS: 73502 ==

== ENCOUNTER 2025-03-18 06:59 | Day surgery (SDC) | payer MEDICAID, SELFPAY ==
[2025-02-17 13:18] VITALS: BP 140/91; PULSE 81; RESP 16; O2SAT 97; BMI 32.1
--- NOTE | 2025-02-17 13:47 | HO.ANESPROP2 ---
Documented by User: Jill Triplett NP 03/11/25 11:06 HPI - Anesthesia Eval Consult details Narrative: *labs pending 49 yr old male for right total hip replacement scheduled for 03/18/25, seen in PAT No recent illness No CP/SOB with work involving sitting, standing, laying on ground working on cars Medically optimized by [facility] preop clinic on 01/22/25 Chronic pain: on chronic pain medication, percocet STOP-BANG at least 4: no official CHRISTIAN diagnosis Nicotine dependence: working cessation Asthma vs COPD: Has symbicort inhaler, instructed to use consistently for 1 month prior to surgery; uses albuterol about twice monthly s/p left hip replacement in 2020 with [facility]: no trouble with anesthesia *needle phobia PMFSH Active Problems Active Problems: All Active Problems Osteoarthritis of right hip (Acute) Chronic SI joint pain (Acute) Synovial cyst of lumbar facet joint (Acute) Lumbar radiculopathy (Acute) Low back pain radiating to right leg (Acute) Right hip pain (Acute) Right knee pain (Acute) Unilateral primary osteoarthritis, right knee (Acute) Nicotine dependence, cigarettes, uncomplicated (Acute) History of lumbar laminectomy (Acute) Past Medical History Medical History Fear of needles Renal calculi Bruxism (teeth grinding) Anxiety Acquired planovalgus deformity of left foot Lumbar degenerative disc disease Arthritis Osteoarthritis Depression Obesity HTN (hypertension) Back pain Loud snoring Asthma Other intervertebral disc degeneration, lumbar region Insomnia, unspecified Generalized anxiety disorder Nicotine dependence, cigarettes, uncomplicated Sedative, hypnotic or anxiolytic dependence, uncomplicated Family History Family history of problems with anesthesia: No Surgical History Surgical History Hx of foot surgery (~2017) History of lumbar laminectomy History of surgical removal of ganglion cyst Hx of tonsillectomy Hx of carpal tunnel repair History of orthopedic surgery History of ankle surgery (~2012) History of hip surgery (~12/02/20) History of Problems with Anesthesia: No Social History Social History Household Members: Spouse Housing: House Are you a primary chronic care nurse to a significant other at home: No Do you presently have visiting nurse or other home services: No Comment: counts correct Patient Tobacco Use Status: Current everyday Tobacco user Tobacco use type: Cigarette Years Smoked: (onset 12yo, 1ppd x 37yrs, now 1/2ppd - 35pyh) Smoked in Last 30 Days: Yes Use of substances other than those prescribed or required for medical reasons: Yes Substance Use Type: Marijuana Substance Use Frequency: Occasionally Have you been hit, kicked, punched, or otherwise hurt by someone within the past year? If so, by whom?: No Are you DNR?: No Advance Directives: No Advance Directives Information Provided: Yes Advance Directives on File: No Poor oral hygiene: No Meds Allergies Allergy/AdvReac Type Severity Reaction Status Date / Time red dye Allergy Intermediate Itching, Verified 03/18/25 07:26 blotchy Home Medications ?Medication ?Instructions ?Recorded ?Confirmed ?Last Taken ?Type albuterol sulfate 90 mcg/actuation 2 puff inhalation Q4-6H PRN 12/16/21 03/18/25 03/18/25 History aerosol inhaler (ProAir HFA) Shortness Of Breath Or Wheezing alprazolam 1 mg tablet See Rx Instructions PO .COMPLEX 12/16/21 03/18/25 Unknown History oxycodone-acetaminophen 5 mg-325 1 tab PO Q4-6H PRN Pain 07/02/24 03/18/25 Unknown History mg tablet quetiapine 25 mg tablet 25 - 75 mg PO BEDTIME 07/02/24 03/18/25 Unknown History hydrochlorothiazide 12.5 mg tablet 12.5 mg PO QAM 02/14/25 03/18/25 Unknown History budesonide-formoterol HFA 160 2 puff inhalation BID 02/17/25 03/18/25 Unknown History mcg-4.5 mcg/actuation aerosol inhaler (Symbicort) nicotine (polacrilex) 2 mg buccal 2 mg buccal Q2-4H 02/17/25 03/18/25 Unknown History lozenge Exam Height,Weight and Vital Signs: Height 6 ft Weight 107.501 kg Last Vital Signs Pulse 81 02/17/25 13:18 Resp 16 02/17/25 13:18 BP 140/91 H 02/17/25 13:18 Pulse Ox 97 02/17/25 13:18 O2 Del Method Room Air 02/17/25 13:18 Narrative Narrative: EKG 01/22/25 Normal sinus rhythm, no ST-T wave changes, rate 67 Airway TM Dist: >3cm Neck ROM: Full Loose/Missing/Broken Teeth: No Heart: RRR Lungs: scant wheezing b/l inspiratory>expiratory Assessment and Plan Final Anesthetic Review Family History of Problems with Anesthesia: No History of Problems with Anesthesia: No Documented by User: Jessika Aguilera NP 03/14/25 13:57 PMFSH Past Medical History Medical History Fear of needles Renal calculi Bruxism (teeth grinding) Anxiety Acquired planovalgus deformity of left foot Lumbar degenerative disc disease Arthritis Osteoarthritis Depression Obesity HTN (hypertension) Back pain Loud snoring Asthma Other intervertebral disc degeneration, lumbar region Insomnia, unspecified Generalized anxiety disorder Nicotine dependence, cigarettes, uncomplicated Sedative, hypnotic or anxiolytic dependence, uncomplicated Surgical History Surgical History Hx of foot surgery (~2017) History of lumbar laminectomy History of surgical removal of ganglion cyst Hx of tonsillectomy Hx of carpal tunnel repair History of orthopedic surgery History of ankle surgery (~2012) History of hip surgery (~12/02/20) Social History Social History Household Members: Spouse Housing: House Are you a primary chronic care nurse to a significant other at home: No Do you presently have visiting nurse or other home services: No Comment: counts correct Patient Tobacco Use Status: Current everyday Tobacco user Tobacco use type: Cigarette Years Smoked: (onset 12yo, 1ppd x 37yrs, now 1/2ppd - 35pyh) Smoked in Last 30 Days: Yes Use of substances other than those prescribed or required for medical reasons: Yes Substance Use Type: Marijuana Substance Use Frequency: Occasionally Have you been hit, kicked, punched, or otherwise hurt by someone within the past year? If so, by whom?: No Are you DNR?: No Advance Directives: No Advance Directives Information Provided: Yes Advance Directives on File: No Poor oral hygiene: No Meds Allergies Allergy/AdvReac Type Severity Reaction Status Date / Time red dye Allergy Intermediate Itching, Verified 03/18/25 07:26 blotchy Home Medications ?Medication ?Instructions ?Recorded ?Confirmed ?Last Taken ?Type albuterol sulfate 90 mcg/actuation 2 puff inhalation Q4-6H PRN 12/16/21 03/18/25 03/18/25 History aerosol inhaler (ProAir HFA) Shortness Of Breath Or Wheezing alprazolam 1 mg tablet See Rx Instructions PO .COMPLEX 12/16/21 03/18/25 Unknown History oxycodone-acetaminophen 5 mg-325 1 tab PO Q4-6H PRN Pain 07/02/24 03/18/25 Unknown History mg tablet quetiapine 25 mg tablet 25 - 75 mg PO BEDTIME 07/02/24 03/18/25 Unknown History hydrochlorothiazide 12.5 mg tablet 12.5 mg PO QAM 02/14/25 03/18/25 Unknown History budesonide-formoterol HFA 160 2 puff inhalation BID 02/17/25 03/18/25 Unknown History mcg-4.5 mcg/actuation aerosol inhaler (Symbicort) nicotine (polacrilex) 2 mg buccal 2 mg buccal Q2-4H 02/17/25 03/18/25 Unknown History lozenge Exam Pertinent Lab Results Pertinent Lab Results: Lab Results 02/17/25 03/13/25 Range/Units 13:30 15:38 WBC 11.9 H (4.8-10.8) X10*3/uL RBC 4.28 L (4.60-5.80) X10*6/uL Hgb 13.9 L (14.0-18.0) g/dl Hct 39.9 L (42.0-52.0) % MCV 93.2 (80.0-98.0) fL MCH 32.5 (27.0-33.0) pg MCHC 34.8 (31.0-36.0) g/dl RDW 13.2 (11.0-16.0) % Plt Count 346 (160-400) X10*3/uL MPV 9.3 L (9.4-12.4) fL Immature Gran % (Auto) 0.3 (0.0-0.4) % Neut % (Auto) 65.4 (45-73) % Lymph % (Auto) 25.3 (20-40) % [place] % (Auto) 6.9 (2-11) % Eos % (Auto) 1.4 (0-4) % Baso % (Auto) 0.7 (0-2) % Lymph # (Auto) 3.0 (1.2-4.9) X10*3/uL [place] # (Auto) 0.8 (0.1-1.2) X10*3/uL Eos # (Auto) 0.2 (0.0-0.4) X10*3/uL Baso # (Auto) 0.1 (0.0-0.2) X10*3/uL Abs Immat Gran (auto) 0.04 H (0.00-0.03) X10*3/uL Absolute Neuts (auto) 7.8 (2.0-8.3) x10*3/uL Absolute Nucleated RBC 0.000 (0.0-0.012) X10*3/uL Nucleated RBC % (auto) 0.0 (0.0-0.2) /100WBC Sodium 143 (135-145) mmol/L Potassium 3.6 (3.3-5.1) mmol/L Chloride 109 H (96-108) mmol/L Carbon Dioxide 26 (22-29) mmol/L Anion Gap 12 (12-20) BUN 13 (9-16) mg/dL Creatinine 1.37 (0.5-1.4) mg/dL Estim Creat Clear Calc 81.7 Estimated GFR 55 Random Glucose 73 (60-115) mg/dL Calcium 9.4 (8.4-10.2) mg/dL Nasal Screen MRSA (PCR) NEGATIVE (Negative) Nasal S. aureus Screen POSITIVE A (Negative) Nasal MRSA/S.aureus Interp SEE NOTE Documented by User: Karla Shah MD 03/18/25 08:03 [facility] Past Medical History Medical History Fear of needles Renal calculi Bruxism (teeth grinding) Anxiety Acquired planovalgus deformity of left foot Lumbar degenerative disc disease Arthritis Osteoarthritis Depression Obesity HTN (hypertension) Back pain Loud snoring Asthma Other intervertebral disc degeneration, lumbar region Insomnia, unspecified Generalized anxiety disorder Nicotine dependence, cigarettes, uncomplicated Sedative, hypnotic or anxiolytic dependence, uncomplicated Surgical History Surgical History Hx of foot surgery (~2017) History of lumbar laminectomy History of surgical removal of ganglion cyst Hx of tonsillectomy Hx of carpal tunnel repair History of orthopedic surgery History of ankle surgery (~2012) History of hip surgery (~12/02/20) History of Problems with Anesthesia: No Social History Social History Household Members: Spouse Housing: House Are you a primary chronic care nurse to a significant other at home: No Do you presently have visiting nurse or other home services: No Comment: counts correct Patient Tobacco Use Status: Current everyday Tobacco user Tobacco use type: Cigarette Years Smoked: (onset 12yo, 1ppd x 37yrs, now 1/2ppd - 35pyh) Smoked in Last 30 Days: Yes Use of substances other than those prescribed or required for medical reasons: Yes Substance Use Type: Marijuana Substance Use Frequency: Occasionally Have you been hit, kicked, punched, or otherwise hurt by someone within the past year? If so, by whom?: No Are you DNR?: No Advance Directives: No Advance Directives Information Provided: Yes Advance Directives on File: No Poor oral hygiene: No Meds Allergies Allergy/AdvReac Type Severity Reaction Status Date / Time red dye Allergy Intermediate Itching, Verified 03/18/25 07:26 blotchy Home Medications ?Medication ?Instructions ?Recorded ?Confirmed ?Last Taken ?Type albuterol sulfate 90 mcg/actuation 2 puff inhalation Q4-6H PRN 12/16/21 03/18/25 03/18/25 History aerosol inhaler (ProAir HFA) Shortness Of Breath Or Wheezing alprazolam 1 mg tablet See Rx Instructions PO .COMPLEX 12/16/21 03/18/25 Unknown History oxycodone-acetaminophen 5 mg-325 1 tab PO Q4-6H PRN Pain 07/02/24 03/18/25 Unknown History mg tablet quetiapine 25 mg tablet 25 - 75 mg PO BEDTIME 07/02/24 03/18/25 Unknown History hydrochlorothiazide 12.5 mg tablet 12.5 mg PO QAM 02/14/25 03/18/25 Unknown History budesonide-formoterol HFA 160 2 puff inhalation BID 02/17/25 03/18/25 Unknown History mcg-4.5 mcg/actuation aerosol inhaler (Symbicort) nicotine (polacrilex) 2 mg buccal 2 mg buccal Q2-4H 02/17/25 03/18/25 Unknown History lozenge Exam Airway Mallampati Class: III Loose/Missing/Broken Teeth: Yes, Upper and Lower Lungs: CLEAR A&P Assessment and Plan Assessment Anesthesia Assessment: Anesthesia Plan Discussed and Chart Reviewed Final Anesthetic Review History of Problems with Anesthesia: No NPO: Yes ASA Class: II Final Preanesthetic Review: Meds/Allgs Chart Reviewed, Consent Obtained/Reviewed and Anes Risks/Benef Reviewed Patient Risk: Low Procedure Risk: Intermediate Anesthetic Plan Anesthetic Plan: GA Disposition: Standard PACU
[2025-02-17 17:52] LABS: MRSA Nasal PCR NEGATIVE (Negative); SA Nasal PCR POSITIVE (Negative)
[2025-03-13 15:40] LABS: MANUAL DIFF FLAG NO
[2025-03-13 17:13] LABS: Hematocrit 39.9 % (42.0-52.0); Hemoglobin 13.9 g/dl (14.0-18.0); Imm Gran Abs Auto 0.04 X10*3/uL (0.00-0.03); Imm Gran Pct Auto 0.3 % (0.0-0.4); Lymphocytes Absolute Auto 3.0 X10*3/uL (1.2-4.9); Mean Corpuscular HGB Conc 34.8 g/dl (31.0-36.0); Mean Corpuscular Hemoglobin 32.5 pg (27.0-33.0); Mean Corpuscular Volume 93.2 fL (80.0-98.0); NRBC Abs Auto 0.000 X10*3/uL (0.0-0.012); NRBC Pct Auto 0.0 /100WBC (0.0-0.2); Platelet Count 346 X10*3/uL (160-400); Red Blood Count 4.28 X10*6/uL (4.60-5.80); White Blood Count 11.9 X10*3/uL (4.8-10.8)
[2025-03-13 17:57] LABS: Anion Gap 12 (12-20); Blood Urea Nitrogen 13 mg/dL (9-16); Calcium 9.4 mg/dL (8.4-10.2); Carbon Dioxide 26 mmol/L (22-29); Chloride 109 mmol/L (96-108); Creatinine Clr Calc Pharmacy 81.7; Estimated Glomerular Filt Rate 55; Potassium 3.6 mmol/L (3.3-5.1); Sodium 143 mmol/L (135-145)
[2025-03-18] VITALS (11 sets, daily range): BP systolic 130–175; BP diastolic 70–96; PULSE 60–82; RESP 14–20; TEMP 36.1–37.1; O2SAT 94–98; BMI 32.1; BMI 33.1
--- NOTE | ~2025-03-18 | XR_ITS ---
EXAMINATION: XR PELVIS CLINICAL INFORMATION: RT ANTONIO COMPARISON: October 14, 2024. TECHNIQUE: AP view of the hips. FINDINGS: Metallic prosthesis with an acetabular and femoral component well-seated in the osseous structures of the right hemipelvis and right femur. Skin radha overlapping the soft tissues of the right hip. Degenerative changes in the symphysis pubis. Total left hip arthroplasty prosthesis, unchanged. XR/XR pelvis 1-2V IMPRESSION: Status post total right hip arthroplasty prosthesis, satisfactory. Electronically signed by: Juan Pablo Worrell MD 03/18/2025 11:27 AM EDT
--- NOTE | 2025-03-18 07:31 | MHC.SHP ---
Pre-Procedural Eval Section A - 24 Hr Update-Section A only Date of Service: 03/18/25 The patient is an INPATIENT: No Changes since office visit: No Cold of Flu in the past 2 weeks, No New Medical Problems, No Changes in Medication and No Patient answered all questions The patient has been examined within 24 hours of the surgical procedure. The History & Physical has been completed within 30 days and I have reviewed it.: Yes Section B - Complete if H&P > 30 days Chief Complaint: Unilateral primary osteoarthritis, right hip Allergies: Allergies Allergy/AdvReac Type Severity Reaction Status Date / Time red dye Allergy Intermediate Itching, Verified 03/18/25 07:26 blotchy Plan I have reviewed the history and physical and performed a pertinent physical examination on my patient. No changes have occurred unless specified. Time Spent With Patient Time: Total time managing care of this patient today ____ minutes.
[2025-03-18] MEDS: oxyCODONE HCl ER 10 MG TAB.ER.12H PO ×2 (07:50→21:38)
[2025-03-18] MEDS: Lactated Ringers 1,000 ML 100 ML IVCONT ×3 (07:56→22:14)
--- NOTE | 2025-03-18 10:48 | PM.DS ---
DS: Providers Provider Date of Service: 03/19/25 <Carlene Barnett PA-C - Last Filed: 03/18/25 10:49> Date of discharge: 03/19/25 <ALEX Adams Last Filed: 03/18/25 10:49> Primary care physician: JULIA Salazar <Carlene Barnett PA-C - Last Filed: 03/18/25 10:49> DS: Diagnosis Discharge Diagnosis (1) History of total replacement of right hip: Status: Acute <ALEX Adams Last Filed: 03/18/25 10:49> DS: Summary Hospital Course Hospital Course: The patient underwent a successful right total hip arthroplasty, they were transferred to PACU and then to the floor to recover. During their stay, their vitals were stable, afebrile at 97.6. Labs were unremarkable, H/H 11.4/32.6. POD 1 they were started on Lovenox for DVT ppx as the patient has a recent history of 1/2 ppd tobacco use, they also received Physical Therapy services twice a day. Prior to discharge, their dressing was clean dry and intact, and the plan was to be discharged home with VNA services. <Carlene Barnett PA-C - Last Filed: 03/18/25 10:49> Time Attestation Discharge Coordination Time (in mins): 30 <Bernadine Murphy PA-C - Last Filed: 03/19/25 10:27> Quality: Safe Use of Opioids Does Pt have an Active Cancer Diagnosis on the Problem List?: No <ALEX Mcpherson Last Filed: 03/19/25 10:27> Quality: Stroke Does the patient have a stroke diagnosis?: No <Bernadine Murphy PA-C - Last Filed: 03/19/25 10:27> Physical Exam Vital Signs: Vital Signs: Last Vital Signs Temp 97.7 F 03/18/25 07:39 Pulse 65 03/18/25 07:39 Resp 14 03/18/25 07:39 BP 138/84 03/18/25 07:39 Pulse Ox 97 03/18/25 07:39 O2 Del Method Room Air 03/18/25 07:39 BMI result Body Mass Index 32.1 <Carlene Barnett PA-C - Last Filed: 03/18/25 10:49> Const: General: cooperative, healthy appearing and no acute distress <Bernadine Murphy PA-C - Last Filed: 03/19/25 10:27> Resp: Effort & Inspection: normal respiratory effort and able to speak in complete sentences <Bernadine Murphy PA-C - Last Filed: 03/19/25 10:27> Extrem: Other: right hip dressing is c/d/i. Able to dorsi/plantar flex. Calf is supple and nontender. Sensation intact. Pedal pulse intact. <Bernadine Murphy PA-C - Last Filed: 03/19/25 10:27> Psych: Appearance: grossly normal <Bernadine Murphy PA-C - Last Filed: 03/19/25 10:27> Mental Status: mental status grossly normal <Bernadine Murphy PA-C - Last Filed: 03/19/25 10:27> Attitude: cooperative <Bernadine Murphy PA-C - Last Filed: 03/19/25 10:27> DS: Data Data Completed and Pending Pending studies at discharge: Pending at discharge 03/18/25 09:16 Surgical [PTH] Routine <Carlene Barnett PA-C - Last Filed: 03/18/25 10:49> Labs on day of discharge: Laboratory Results - last 24 hr 03/18/25 07:51 Blood Type A Positive Antibody Screen NEGATIVE <Carlene Barnett PA-C - Last Filed: 03/18/25 10:49> Discharge Plan Discharge Patient Disposition: Home Health Service <Carlene Barnett PA-C - Last Filed: 03/18/25 10:49> Referrals: Carlene Barnett PA-C [Physician Director Financial Systems, Orthopedics] - 1 Week Referral Note: 04/03/25 09:45 [facility] Surgeons Carlene Barnett PA-C <Carlene Barnett PA-C - Last Filed: 03/18/25 10:49> Discharge Medications: New celecoxib 200 mg Capsule 200 mg PO BID 30 Days Qty: 60 0RF acetaminophen 325 mg Tablet 650 mg PO Q6H PRN (Reason: Pain, Mild 1-3,Fever,Headache) 30 Days Qty: 240 0RF docusate sodium 100 mg Capsule 100 mg PO BID 30 Days Qty: 60 0RF oxycodone 5 mg Tablet 5 mg PO Q4H PRN (Reason: Pain, Moderate(Pain Scale 4-6)) 7 Days Qty: 42 0RF Rx Instructions: Partial Fill upon patient request. enoxaparin 40 mg/0.4 mL Syringe 40 mg subcut Q24H 42 Days Qty: 16.8 0RF Continued (DME) Folding Front Wheeled walker See Rx Instructions .ROUTE .MEDSUPPLY Qty: 1 0RF Rx Instructions: Duration: 99 days (DME) Raised toilet seat See Rx Instructions .ROUTE .MEDSUPPLY Qty: 1 0RF Rx Instructions: duration - 99 days nicotine (polacrilex) 2 mg Lozenge 2 mg BUCCAL Q2-4H budesonide-formoterol [Symbicort] 160-4.5 mcg/actuation HFA aerosol inhaler 2 puff inhalation BID valsartan 160 mg tablet 160 mg PO DAILY alprazolam 1 mg tablet See Rx Instructions PO .COMPLEX Rx Instructions: 1-2 tablets orally; albuterol sulfate [ProAir HFA] 90 mcg/actuation HFA aerosol inhaler 2 puff inhalation Q4-6H PRN (Reason: Shortness Of Breath Or Wheezing) quetiapine 25 mg tablet 25 - 75 mg PO BEDTIME hydrochlorothiazide 12.5 mg tablet 12.5 mg PO QAM Discontinued oxycodone-acetaminophen 5-325 mg tablet 1 tab PO Q4-6H PRN (Reason: Pain) <Carlene Barnett PA-C - Last Filed: 03/18/25 10:49> Discharge Orders: Discharge Order (Routine); Ordered 03/19/25 Ordered By: Bernadine Murphy <Carlene Barnett PA-C - Last Filed: 03/18/25 10:49> Diet: Regular diet <Carlene Barnett PA-C - Last Filed: 03/18/25 10:49> Regular diet <Bernadine Murphy PA-C - Last Filed: 03/19/25 10:27> Activity on Discharge: Use cane or walker <Carlene Barnett PA-C - Last Filed: 03/18/25 10:49> Use cane or walker <Bernadine Murphy PA-C - Last Filed: 03/19/25 10:27> Activity Restrictions/Additional Instructions: Physical Therapy : Hip replacement- WBAT with walker, posterior precautions, gait training Use walker for ambulation Limit stair climbing No shower or tub bath No driving for 6 weeks Continue anticoagulant Keep Aquacel dressing clean, dry and intact. Follow up with orthopedics in 2 weeks -Bandage/Incision Site Care: -Ice 20mins at a time -Make sure you use a towel or cloth on your skin as a barrier -DO NOT remove the bandage -Keep Bandage clean, dry and intact -Do not get the bandage wet: -No tub bath, pools or hot tubs -If there are any concerns regarding the bandage please call orthopedics: [phone] -Hip Precautions: -Refrain from laying on side -No crossing the legs -Avoid low chairs and deep couches -Use supportive shoes with nonslip soles -Physical Therapy: -Patient is WBAT with the use of a walker -Strengthening: Quadriceps and hip muscles -Walking: Gait training and gradually increasing distance with walker -Ankle pumps and incentive spirometry to limit the risk of blood clot -Diet: -Resume regular diet as tolerated. -Drink plenty of fluids and eat a high-fiber foods to avoid constipation -This is a common side effect of pain medication) -Take stool softeners as prescribed -Blood Clot Prevention: -Take the prescribed blood thinner (Aspirin) as directed for 6 weeks -Perform ankle pumps and walk frequently with the walker and assistance if needed -Report calf pain, swelling, or shortness of breath immediately <Carlene Barnett PA-C - Last Filed: 03/18/25 10:49> Print Language: Bulgarian <Carlene Barnett PA-C - Last Filed: 03/18/25 10:49>
--- NOTE | 2025-03-18 10:51 | P.F2F_ITS ---
Service Date Service Date: 03/18/25 Encounter Date of encounter: 03/19/25 Reasons for Services Signs and symptoms assessed: Weakness, poor balance, poor gait mechanics Reason for physical therapy: home safety and mobility, therapeutic exercises, restore joint function, gait/transfer training, ADL training and energy conservation Reason for occupational therapy: home safety and mobility, therapeutic exercises, restore joint function, gait/transfer training, ADL training and energy conservation Overseeing Care: Bryan Prince Homebound: Leaving the home is medically contraindicated at this time without the asist of a device and/or another person due th the listed conditions above and below. Reason homebound: unsteady gait / fall risk, pain with ambulation, poor balance / fall risk and unable to drive Homebound supporting statement: Pt. is considered home bound due to recent surgery. Unable to drive, poor balance, poor gait mechanics. Certification: Based on the above findings, I certify that this patient is confined to the home and needs intermittent halfway care, physical therapy and/or speech therapy, or continues to need occupational therapy. The patient is under my care, and I have initiated the establishment of the plan of care. The patient will be followed by a physician who will periodically review the plan of care. Time Spent With Patient Time: Total time managing care of this patient today ____ minutes.
--- NOTE | 2025-03-18 10:54 | PM.OP ---
Brief Operative Note Date of Service: 03/18/25 Pre-op diagnosis: Right hip OA Post-op diagnosis: same Procedure: Right ANTONIO Implants: Harris Accolade2 #5 127 with +2.5 36 ceramic; Trident 2 56 with 2 30x 6.5 mm acetabular screws Surgeon: Bryan Prince MD Anesthesia: local Was an Beam House Inspector used for this Procedure?: Yes Beam House Inspector: Carlene Barnett Estimated blood loss (mL): 200 IV fluids (mL): 1,000 Pathology: other Condition: stable Disposition: PACU
--- NOTE | 2025-03-18 13:13 | PHA.MEDREC ---
Pharmacy Consult ? Medication Reconciliation Pharmacy has completed the medication reconciliation. Reviewed med rec done by nursing, confirmed Valsartan as it was just filled for 160mg daily x 90 days.
[2025-03-18] MEDS: oxyCODONE HCl Immed Release 5 MG TABLET PO ×2 (14:17→19:41)
[2025-03-19 03:14] VITALS: BP 134/71; PULSE 60; RESP 18; TEMP 37.1; O2SAT 97
[2025-03-19 05:51] LABS: MANUAL DIFF FLAG NO
[2025-03-19 06:05] LABS: Hematocrit 32.6 % (42.0-52.0); Hemoglobin 11.4 g/dl (14.0-18.0); Imm Gran Abs Auto 0.04 X10*3/uL (0.00-0.03); Imm Gran Pct Auto 0.3 % (0.0-0.4); Lymphocytes Absolute Auto 1.9 X10*3/uL (1.2-4.9); Mean Corpuscular HGB Conc 35.0 g/dl (31.0-36.0); Mean Corpuscular Hemoglobin 32.2 pg (27.0-33.0); Mean Corpuscular Volume 92.1 fL (80.0-98.0); NRBC Abs Auto 0.000 X10*3/uL (0.0-0.012); NRBC Pct Auto 0.0 /100WBC (0.0-0.2); Platelet Count 286 X10*3/uL (160-400); Red Blood Count 3.54 X10*6/uL (4.60-5.80); White Blood Count 13.1 X10*3/uL (4.8-10.8)
[2025-03-19 06:14] LABS: Anion Gap 10 (12-20); Blood Urea Nitrogen 15 mg/dL (9-16); Calcium 8.5 mg/dL (8.4-10.2); Carbon Dioxide 23 mmol/L (22-29); Chloride 110 mmol/L (96-108); Creatinine Clr Calc Pharmacy 124.8; Estimated Glomerular Filt Rate > 60; Potassium 3.6 mmol/L (3.3-5.1); Sodium 139 mmol/L (135-145)
[2025-03-19] MEDS: oxyCODONE HCl Immed Release 5 MG TABLET PO (07:09)
[2025-03-19 08:00] VITALS: BP 130/69; PULSE 64; RESP 18; TEMP 36.4; O2SAT 100
--- NOTE | 2025-03-19 08:08 | PM.PNORT ---
Subjective Subjective Date of Service: 03/19/25 Interval history: POD1 s/p RTHA Patient is resting in bed comfortably No overnight events Pain is managed No additional complaints Physical Exam Vital Signs: Vital Signs: Last Vital Signs Temp 98.8 F 03/19/25 03:14 Pulse 60 03/19/25 03:14 Resp 18 03/19/25 03:14 BP 134/71 03/19/25 03:14 Pulse Ox 97 03/19/25 03:14 O2 Del Method Room Air 03/19/25 03:14 O2 Flow Rate 6 03/18/25 10:57 BMI result Body Mass Index 33.1 Const: General: cooperative, healthy appearing and no acute distress Resp: Effort & Inspection: normal respiratory effort and able to speak in complete sentences Extrem: Other: right hip dressing is c/d/i. Able to dorsi/plantar flex. Calf is supple and nontender. Sensation intact. Pedal pulse intact. Psych: Appearance: grossly normal Mental Status: mental status grossly normal Attitude: cooperative Procedures Date of Service Date of Service: 03/19/25 Progress Note: A&P Assessment and plan (1) Status post total hip replacement, right: Status: Acute Assessment and Plan: Continue pain mgmnt Begin Lovnox for dvt ppx -1/2 ppd smoker recently quit 03/10/25 begin PT/OT for RTHA - WBAT, posterior precautions Dispo planning- PT/OT, pain mgmnt Time Spent With Patient Time: Total time managing care of this patient today ____ minutes. Quality Stroke Does the patient have a stroke diagnosis?: No VTE Prior VTE?: No VTE Risk Level:: Medical - moderate - high VTE Device Contraindication: N/A - Device Ordered VTE Drug Contraindication: N/A - Med Ordered
--- NOTE | 2025-03-19 08:13 | HO.POSTANES ---
Post Anesthesia Evaluation Post Anesthesia Evaluation Date of Service: 03/19/25 Vital Signs: Vital Signs Temp Pulse Resp BP Pulse Ox O2 Del Method 03/19/25 08:00 97.6 F 64 18 130/69 100 Room Air 03/19/25 03:14 98.8 F 60 18 134/71 97 Room Air Anesthesia: General Mental Status: Awake Pain Control: Satisfactory Nausea/Vomiting: None Hydration: Adequate Anesthesia-Related Issues: No Anes. Related Issues
[2025-03-19] MEDS: Fluticasone/Vilanterol 200/25 BLST.W.DEV 1 PUFF INHALE (08:55)
[2025-03-19] MEDS: oxyCODONE HCl ER 10 MG TAB.ER.12H PO (08:57)
--- NOTE | 2025-03-19 10:48 | MHC.CM.PN ---
Addendum entered by Claribel Gutierrez 03/19/25 11:09: DP: PT HAS BEEN MEDICALLY CLEARED FOR DC HOME WITH NEW [facility], [facility] NOTIFIED OF TODAY'S DC. [facility] WILL TRANSPORT Original Note: CM MET WITH PT AT BEDSIDE. PT LIVES WITH [facility], IS SELF-EMPLOYED AND FUNCTIONALLY INDEPENDENT. PT USES A [employer]. NO SERVICES. + HCP PCP AIDE COSME DP: HOME WITH NEW [facility] FOR P.T. AND O.T. SERVICES. [facility] WILL TRANSPORT HOME.
--- NOTE | 2025-03-21 14:23 | P.OP_ITS ---
Operative Note Operative Note Date of Service: 03/18/25 Narrative: Date of Service: 03/18/25 Pre-op diagnosis: Right hip OA Post-op diagnosis: same Procedure: Right ANTONIO Implants: [place] Accolade2 #5 127 with +2.5 36 ceramic; Trident 2 56 with 2 30x 6.5 mm acetabular screws Surgeon: Bryan Prince MD Anesthesia: local Was an Solar Resource Assessor used for this Procedure?: Yes Solar Resource Assessor: Carlene Barnett Estimated blood loss (mL): 200 IV fluids (mL): 1,000 Pathology: other Condition: stable Disposition: PACU Procedure in detail: Patient was brought into the operating room and placed in the left lateral decubitus position. All bony prominences were well padded and the limb was prepped and draped in standard sterile fashion. A time-out was called to identify proper site procedure proper surgeon IV antibiotics and 1 g of tranexamic acid were administered. I began by making a curvilinear incision over the posterolateral aspect of the greater trochanter. Dissection was taken down to the tensor fascia which was incised in line with the incision and a Charnley retractor was placed. Cautery was used to maintain hemostasis. The hip was internally rotated and the external rotators were identified. The vessels were cauterized and a full-thickness capsular/external rotator layer was d eveloped starting just distal to the piriformis. This layer was tagged and a dull Hohmann retractor was placed underneath the neck in the hip was dislocated. A neck cut was made 1 cm proximal to the lesser trochanter and the head and neck were removed and measured 52mm on the back table. The head was deformed and eburnated. I then removed the labrum and cauterized the fovea. I started with a 46reamer and medialized to the inner table. I sequentially reamed up to a size 56 and impacted a 56mm cup at 45 degrees of inclination and 25 degrees of version. 26.5 mm acetabular screws were placed into the superior safe zone using standard AO technique. I then placed a 20 deg posterior lipped liner and turned my attention to the femur. I identified the space just anterior to the piriformis insertion and used this as a starting point for my geriie cutter. The medius tendon was protected with a Hibs retractor. A Charnley awl was inserted in the canal and a curved curette used to remove the lateral bone. I irrigated copiously. I then sequentially broached in the patient's natural version to a size 5 and placed my trial implants. I used a #5/127/+2.5 based on my pre-operative template. I removed all instrumentation and copiously irrigated. I placed my final femoral implant and again took the hip through range of motion and was satisfied with the stability and length. The final +2.5 implant was impacted in place and the hip reduced. I then irrigated copiously and placed 1 g of local tranexamic acid. I performed a capsular closure with 2.0 fiberwire, Rosalba's fascia with 0 Vicryl, subcuticular with 2-0 Vicryl and the skin with radha. Patient was placed into a sterile dressing. Patient was extubated brought to the recovery room in stable condition. There were no known complications.
== END 2025-03-19 12:07 | disposition home health service (06) ==
LOC: HO.SSS 10:51 → HO.S3 11:50
PROVIDERS: Physician Assistant; PCP Physician Assistant Medical; Visit Provider Orthopaedic Surgery
PROC: (CPT 27130; principal; 2025-03-18 08:30)
DX: M16.11 Unilateral primary osteoarthritis, right hip (principal); J45.909 Unspecified asthma, uncomplicated; G89.29 Other chronic pain; M25.561 Pain in right knee; M53.3 Sacrococcygeal disorders, not elsewhere classified; M54.16 Radiculopathy, lumbar region; Z79.51 Long term (current) use of inhaled steroids; Z96.642 Presence of left artificial hip joint; Z98.890 Other specified postprocedural states; Z79.891 Long term (current) use of opiate analgesic; F17.210 Nicotine dependence, cigarettes, uncomplicated
CPT/HCPCS: 27130; 36415; 72170; 80048; 85025; 86850; 86900; 86901; 87640; 87641; 88304; 88311; 97116; 97161; 97165; C1713; C1776; C9088; J0131; J0690; J1100; J1171; J1650; J1920; J2003; J2250; J2405; J2704; J3010; J7120

== ENCOUNTER → 2025-03-18 06:59 | Outpatient (BNV) | payer MEDICAID, SELFPAY | PROVIDERS: PCP Physician Assistant Medical; Visit Provider Physician Assistant | DX: Z47.1 Aftercare following joint replacement surgery (principal); Z96.641 Presence of right artificial hip joint | CPT/HCPCS: 27130; 99024; G0180 ==

== ENCOUNTER → 2025-03-18 10:48 | Outpatient (BNV) | payer MEDICAID, SELFPAY | PROVIDERS: PCP Physician Assistant Medical; Visit Provider Radiology Diagnostic Radiology | DX: Z96.641 Presence of right artificial hip joint (principal) | CPT/HCPCS: 72170 ==

== ENCOUNTER 2025-04-03 09:45 | Outpatient (AMB) | payer MEDICAID, SELFPAY ==
--- NOTE | 2025-04-03 09:49 | MHC.OFFVIS ---
Intake Visit Reasons: 1st PO: R ANTONIO w/NE 03/18/25 Intake Note: Landon is a 49 year old male who presents today for his first post operative appointment s/p Right ANTONIO 03/18/25. Patient reports he is doing well, states his current pain level is a 4 out of 5. States his most discomfort come with attending therapy and after he attends. He is requesting a refill on his pain medication. Allergies red dye Allergy (Intermediate, Verified 04/03/25 09:50) Itching, blotchy Medication List - Last Reconciled 04/03/25 by Carlene Barnett PA-C acetaminophen 650 mg (2 x 325 mg) PO Q6H PRN 30 days albuterol sulfate 90 mcg/actuation (ProAir HFA) 2 puffs inhalation Q4-6H PRN alprazolam 1-2 tablets orally; budesonide-formoterol 160-4.5 mcg/actuation (Symbicort) 2 puffs inhalation BID celecoxib 200 mg PO BID 30 days docusate sodium 100 mg PO BID 30 days enoxaparin 40 mg (0.4 mL) subcut Q24H 42 days [Folding Front Wheeled walker Duration: 99 days] hydrochlorothiazide 12.5 mg PO QAM nicotine (polacrilex) 2 mg buccal Q2-4H oxycodone 5 mg PO Q4H PRN 7 days quetiapine 25 - 75 mg PO BEDTIME [Raised toilet seat duration - 99 days] valsartan 160 mg PO DAILY HPI HPI 1st PO: R ANTONIO w/NE 03/18/25: Details: 49-year-old gentleman returns to the office today status post right total hip arthroplasty on 03/18/[address] Prince. He is doing well and continues to work with home physical therapy. He is ambulating with a cane. [facility] Medical History Fear of needles Renal calculi Bruxism (teeth grinding) Anxiety Acquired planovalgus deformity of left foot Lumbar degenerative disc disease Arthritis Osteoarthritis Depression Obesity HTN (hypertension) Back pain Loud snoring Asthma Other intervertebral disc degeneration, lumbar region Insomnia, unspecified Generalized anxiety disorder Nicotine dependence, cigarettes, uncomplicated Sedative, hypnotic or anxiolytic dependence, uncomplicated Surgical History Hx of foot surgery (~2018) History of lumbar laminectomy History of surgical removal of ganglion cyst Hx of tonsillectomy Hx of carpal tunnel repair History of orthopedic surgery History of ankle surgery (~2012) History of hip surgery (~12/02/20) Social History Household Members: Spouse Caregiver staying overnight: No Housing: House Are you a primary lawn care professional to a significant other at home: No Do you presently have visiting nurse or other home services: No 75 years or older and lives alone: No Comment: counts correct Patient Tobacco Use Status: Former Tobacco user Tobacco use type: Cigarette Years Smoked: (onset 12yo, 1ppd x 37yrs, now 1/2ppd - 35pyh) Second Hand Smoke Exposure: No Substance Use Type: Marijuana service: No Review of Systems Const All systems reviewed & are unremarkable except as noted in HPI and below Physical Exam Extrem Other: Right hip incision clean, dry and intact. No erythema or swelling. Calf supple non tender, NVI. Assessment & Plan Assessment & Plan (1) History of total replacement of right hip: Code(s): Z96.641 - Presence of right artificial hip joint Category: Surgical Plan: [place] removed today Steri-Strips applied. The patient will continue working with physical therapy for gait training and strengthening exercises. He will require antibiotics for dental prophylaxis but understands he should not have dental cleaning for up to 3 months postop. Reiterated the importance of no driving for 6 week postop. He was given the information for physical therapy and will call to make an appointment. The patient will see us back in [address] Prince, sooner if needed. Coding Level of Care Code Global (96449) Diagnoses History of total replacement of right hip Z96.641
--- OUTSIDE RECORDS SUMMARY | 2025-04-03 10:55 | XMS_ITS | Clinical Summary ---
Author Organization [facility] Address [address] [place] [id number] Phone Care Team Providers Care Commercial Production Editor Name Role Phone Jean Tracey MD Primary [...] FOBT 2019 SIGMOIDOSCOPY 2019 VIRTUAL COLONOSCOPY 2019 ZOSTER VACCINES (1 of 2) 2024 INFLUENZA VACCINE (#1) 2025 COVID-19 VACCINE (1 - 2023-2 5 season) 2025 HEPATITIS A VACCINES Aged Out No [...] topic Medical Devices Not on file [place] [place] [address] [facility] Care Teams Commercial Production Editor Relationship Specialty Start Date End Date Jean Tracey MD [address] [facility] [address] [place] [address] PCP - General Internal Medicine 10/28/22 Additional Source Comments The information contained in this document represents components of the legal health record. It is not the complete legal health record.[facility]
== END 2025-04-03 11:17 | disposition home or self-care (01) ==
LOC: HO.HOS 09:46
PROVIDERS: PCP Physician Assistant Medical; Visit Provider Physician Assistant
DX: Z96.641 Presence of right artificial hip joint (principal)
CPT/HCPCS: 99024

== ENCOUNTER → 2025-04-03 09:45 | Outpatient (BNVA) | payer MEDICAID, SELFPAY | PROVIDERS: PCP Physician Assistant Medical; Visit Provider Physician Assistant | DX: Z47.1 Aftercare following joint replacement surgery (principal); Z96.641 Presence of right artificial hip joint | CPT/HCPCS: 99212 ==

== ENCOUNTER 2025-04-24 13:00 | Outpatient (REF) | payer MEDICAID, SELFPAY ==
--- NOTE | ~2025-04-24 | XR_ITS ---
EXAMINATION: XR PELVIS CLINICAL INFORMATION: M25.559 - Pain in unspecified hip COMPARISON: 03/18/2025 TECHNIQUE: AP view of the pelvis. FINDINGS: X-ray excludes the upper third of the pelvis. Bilateral total hip placement has been performed. Both acetabular cups are secured with 2 screws. Femoral stems make good cortical contact. There is no abnormal lucency at bone metal interfaces. There has been no shift or change in the hardware. XR/XR pelvis 1-2V IMPRESSION: Bilateral total hip replacement. Upper third of the pelvis is excluded from the x-ray. If there is concern in this region, patient can return to radiology for an additional image without charge. Electronically signed by: Eligio Weston MD 04/24/2025 02:54 PM EDT
--- OUTSIDE RECORDS SUMMARY | 2025-04-24 16:13 | XMS_ITS | Clinical Summary ---
Author Organization [facility] Address [address] [place] [phone] Phone Care Team Providers Care Instructor Watch Assembly Name Role Phone Jean Tracey MD Primary [...] VACCINE (#1) 2025 COVID-19 VACCINE (1 - 2024-2 6 season) 2025 RSV VACCINE (1 - 1-dose 75+ series) 2049 HEPATITIS A VACCINES Aged Out No long [...] topic Medical Devices Not on file Insurance [place] [address] [facility] [place] [address] [facility] Care Teams Instructor Watch Assembly Relationship Specialty Start Date End Date Jean Tracey MD [address] [facility] [address] [place] [address] PCP - General Internal Medicine 10/28/22 Additional Source Comments The information contained in this document represents components of the legal health record. It is not the complete legal health record.[facility]
== END 2025-04-24 13:01 | disposition home or self-care (01) ==
LOC: HO.HOSX 13:00
PROVIDERS: Visit Provider Orthopaedic Surgery
DX: Z96.641 Presence of right artificial hip joint (principal); M25.551 Pain in right hip
CPT/HCPCS: 72170; 99212

== ENCOUNTER 2025-04-24 14:41 | Outpatient (AMB) | payer MEDICAID, SELFPAY ==
--- NOTE | 2025-04-24 14:50 | A.OFFVIS_ITS ---
Intake Visit Reasons: 6WKPO: R ANTONIO w/NE 03/18/25 Intake Note: Landon is a 49 year old male who presents today for a post operative visit about 4 weeks s/p Right NATONIO 03/18/25. HE continues to work with home therapy. Allergies red dye Allergy (Intermediate, Verified 04/03/25 09:50) Itching, blotchy HPI HPI 6WKPO: R ANTONIO w/NE 03/18/25: Details: Rosie is doing very well. He has returned to work. He has no complaints. [facility] Medical History Fear of needles Renal calculi Bruxism (teeth grinding) Anxiety Acquired planovalgus deformity of left foot Lumbar degenerative disc disease Arthritis Osteoarthritis Depression Obesity HTN (hypertension) Back pain Loud snoring Asthma Other intervertebral disc degeneration, lumbar region Insomnia, unspecified Generalized anxiety disorder Nicotine dependence, cigarettes, uncomplicated Sedative, hypnotic or anxiolytic dependence, uncomplicated Surgical History Hx of foot surgery (~2017) History of lumbar laminectomy History of surgical removal of ganglion cyst Hx of tonsillectomy Hx of carpal tunnel repair History of orthopedic surgery History of ankle surgery (~2012) History of hip surgery (~12/02/20) Social History Household Members: Spouse Caregiver staying overnight: No Housing: House Are you a primary live in caregiver to a significant other at home: No Do you presently have visiting nurse or other home services: No 75 years or older and lives alone: No Comment: counts correct Patient Tobacco Use Status: Former Tobacco user Tobacco use type: Cigarette Years Smoked: (onset 12yo, 1ppd x 37yrs, now 1/2ppd - 35pyh) Second Hand Smoke Exposure: No Substance Use Type: Marijuana service: No Physical Exam Extrem Other: Incision clean dry intact. Walking comfortably. no pain with hip range of motion. Results Reviewed Results Reviewed: I personally reviewed relevant radiographs. Right ANTONIO in expected post operative position with no hardware complications or evidence of loosening Assessment & Plan Assessment & Plan (1) Status post total hip replacement, right: Code(s): Z96.641 - Presence of right artificial hip joint Category: Surgical Plan: Doing very well status post right hip replacement. Continue activity as tolerated. May discontinue Lovenox. Dental prophylaxis discussed. Follow up 6 weeks. Orders: Orders XR pelvis 1-2V Today M25.559 - Pain in unspecified hip Coding Level of Care Code Global (44163) Diagnoses Status post total hip replacement, right Z96.641
== END 2025-04-24 16:32 | disposition home or self-care (01) ==
LOC: HO.HOS 14:42
PROVIDERS: PCP Physician Assistant Medical; Visit Provider Orthopaedic Surgery
DX: Z96.641 Presence of right artificial hip joint (principal)
CPT/HCPCS: 99024

== ENCOUNTER → 2025-04-24 14:44 | Outpatient (BNV) | payer MEDICAID, SELFPAY | PROVIDERS: Visit Provider Radiology Diagnostic Radiology | DX: Z96.643 Presence of artificial hip joint, bilateral (principal) | CPT/HCPCS: 72170 ==

== ENCOUNTER 2025-06-05 10:45 | Outpatient (AMB) | payer MEDICAID, SELFPAY ==
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
== END 2025-06-05 11:47 | disposition home or self-care (01) ==
LOC: HO.HOS 10:46
PROVIDERS: Visit Provider Orthopaedic Surgery
DX: Z96.641 Presence of right artificial hip joint (principal)
CPT/HCPCS: 99024

== ENCOUNTER → 2025-06-05 10:45 | Outpatient (BNVA) | payer MEDICAID, SELFPAY | PROVIDERS: Visit Provider Orthopaedic Surgery | DX: Z47.1 Aftercare following joint replacement surgery (principal); Z96.641 Presence of right artificial hip joint | CPT/HCPCS: 99212 ==